=== PATIENT | male | born 1990 | race Two or more races ===

== ENCOUNTER 2016-06-30 22:16 | Emergency (ER) | payer MEDICAID ==
--- NOTE | 2016-07-01 02:49 | ER Document Report ---
ED Hand/Wrist Injury - General Chief Complaint: Hand Injury Stated Complaint: LEFT ARM INJURY Mode of Arrival: Ambulatory Information source: Patient Notes: 26-year-old male presents to the emergency department complaining of left hand pain. Patient 2 reports days ago was helping a friend move some heavy furniture when a desk fell on his hand. Reports pain to the lateral dorsal aspect of his abdomen worse with movement. Denies numbness or tingling. TRAVEL OUTSIDE OF THE [place] IN LAST 30 DAYS: No - HPI Injury to: Hand Where: Home Timing: Still present Quality of pain: Achy Severity: Moderate Pain Level: 3 Context: Blow - Related Data Allergies/Adverse Reactions: No Known Allergies Allergy (Verified 06/30/16 23:14) Past Medical History - General Information source: Patient - Social History Smoking Status: Never Smoker Frequency of alcohol use: None Drug Abuse: None Lives with: Family Family History: Reviewed & Not Pertinent Patient has suicidal ideation: No Patient has homicidal ideation: No - Past Medical History Cardiac Medical History: Reports: Hx Hypercholesterolemia Renal/ Medical History: Denies: Hx Peritoneal Dialysis GI Medical History: Reports: Hx Gastroesophageal Reflux Disease Psychiatric Medical History: Reports: Hx Attention Deficit Hyperactivity Disorder, Hx Bipolar Disorder Surgical Hx: Negative - Immunizations Hx Diphtheria, Pertussis, Tetanus Vaccination: Yes Review of Systems - Review of Systems Constitutional: No symptoms reported EENT: No symptoms reported Cardiovascular: No symptoms reported Respiratory: No symptoms reported Gastrointestinal: No symptoms reported Genitourinary: No symptoms reported Male Genitourinary: No symptoms reported Musculoskeletal: See HPI Skin: No symptoms reported Hematologic/Lymphatic: No symptoms reported Neurological/Psychological: No symptoms reported -: Yes All other systems reviewed and negative Physical Exam - Vital signs Vitals: Temp Pulse Resp BP Pulse Ox 97.8 F 77 16 117/87 H 96 06/30/16 23:14 06/30/16 23:14 06/30/16 23:14 06/30/16 23:14 06/30/16 23:14 - General General appearance: Appears well, Alert In distress: None - HEENT Head: Normocephalic, Atraumatic Eyes: Normal Pupils: PERRL - Respiratory Respiratory status: No respiratory distress Chest status: Nontender Breath sounds: Normal Chest palpation: Normal - Cardiovascular Rhythm: Regular Heart sounds: Normal auscultation Murmur: No - Abdominal Inspection: Normal Distension: No distension Bowel sounds: Normal Tenderness: Nontender Organomegaly: No organomegaly - Extremities General upper extremity: Normal inspection, Nontender, Normal color, Normal ROM , Normal temperature. No: Edema General lower extremity: Normal inspection, Nontender, Normal color, Normal ROM , Normal strength, Normal temperature, Normal weight bearing. No: Edema Shoulder: Normal, Nontender Arm: Normal, Nontender Elbow: Normal, Nontender Forearm: Normal, Nontender Wrist: Normal, Nontender Hand: Tender - Mild tenderness with palpation and slight localized swelling and bruising to the lateral dorsal aspect of left hand over the fourth and fifth MCP joint area. Full but painful active, passive, and against resistance range of motion. Neurovascular function intact with immediate capillary refill and distal sensation intact., Swelling. No: Deformity, Instability, Laceration, Tendon deficit Course - Re-evaluation Re-evalutation: 07/01/16 02:50 Patient hemodynamically stable, in no distress. Exam negative for osseous injury. Gary wrap placed per patient request. Patient appears stable for discharge and agrees with care, follow-up with PCP, and ED return precautions. - Vital Signs Vital signs: Temp Pulse Resp BP Pulse Ox 97.8 F 77 16 117/87 H 96 06/30/16 23:14 06/30/16 23:14 06/30/16 23:14 06/30/16 23:14 06/30/16 23:14 - Diagnostic Test Radiology reviewed: Image reviewed, Reports reviewed Procedures - Immobilization Left hand Pre-Proc Neuro Vasc Exam: Normal Immobilizer type: Gary wrap Performed by: RN, PCT Post-Proc Neuro Vasc Exam: Normal Alignment checked and good: Yes Discharge - Discharge Clinical Impression: Contusion of left hand Qualifiers: Encounter type: initial encounter Qualified Code(s): S60.222A - Contusion of left hand, initial encounter Condition: Stable Disposition: HOME, SELF-CARE Instructions: Contusion ([facility]), Ice & Elevation ([facility]), Anti-Inflammatory Medication ([facility]), Gary Wrap ([facility]) Additional Instructions: Follow-up with your primary care provider this week. Return to the emergency department for any worsening symptoms or concerns. Prescriptions: Naproxen 500 mg PO BIDP PRN #10 tablet PRN Reason: Forms: Return to Work
[2016-07-01 03:05] VITALS: BP 121/81
== END 2016-07-01 02:50 | disposition home or self-care (01) ==
LOC: ER 22:16
DX: S60.222A Contusion of left hand, initial encounter (principal); W22.8XXA Striking against or struck by other objects, initial encounter; Y92.009 Unspecified place in unspecified non-institutional (private) residence as the place of occurrence of the external cause; K21.9 Gastro-esophageal reflux disease without esophagitis; E78.00 Pure hypercholesterolemia, unspecified
CPT/HCPCS: 99283

== ENCOUNTER 2016-12-26 23:29 | Emergency (ER) | payer MEDICAID ==
[2016-12-27 00:38] LABS: ABSOLUTE BASOPHILS # (AUTO) 0.1 10^3/uL (0.0-0.2); ABSOLUTE EOSINOPHILS # (AUTO) 0.3 10^3/uL (0.0-0.6); ABSOLUTE LYMPHOCYTES (AUTO) 3.5 10^3/uL (0.5-4.7); ABSOLUTE MONOCYTES (AUTO) 0.6 10^3/uL (0.1-1.4); ABSOLUTE NEUT (AUTO) 4.1 10^3/uL (1.7-8.2); BASOPHILS % (AUTO) 1.4 % (0-2); EOSINOPHILS % (AUTO) 3.9 % (0-6); HEMATOCRIT 44.2 % (37.9-51.0); HEMOGLOBIN 15.8 g/dL (13.5-17.0); HGB HCT DIFFERENCE 3.2; LYMPHOCYTES % (AUTO) 40.6 % (13-45); MEAN CORPUSCULAR HEMOGLOBIN 31.3 pg (27.0-33.4); MEAN CORPUSCULAR HGB CONC 35.7 g/dL (32.0-36.0); MEAN CORPUSCULAR VOLUME 88 fl (80-97); MONOCYTES % (AUTO) 6.7 % (3-13); RED BLOOD COUNT 5.04 10^6/uL (4.35-5.55); RED CELL DISTRIBUTION WIDTH 13.7 % (11.5-14.0); SEGMENTED NEUTROPHILS % (AUTO) 47.4 % (42-78); WHITE BLOOD COUNT 8.7 10^3/uL (4.0-10.5)
[2016-12-27 00:54] LABS: APPEARANCE,URINE CLEAR; BILIRUBIN,URINE NEGATIVE (NEGATIVE); GLUCOSE, URINE NEGATIVE (NEGATIVE); KETONES,URINE NEGATIVE (NEGATIVE); LEUKOCYTE ESTERASE,URINE NEGATIVE (NEGATIVE); NITRITE,URINE NEGATIVE (NEGATIVE); PROTEIN,URINE NEGATIVE (NEGATIVE); URINE SPECIFIC GRAVITY 1.002; UROBILINOGEN,URINE NEGATIVE mg/dL (<2.0)
[2016-12-27] MEDS ORDERED: DICYCLOMINE HCL 20 MG TABLET PO ONE (00:55)
[2016-12-27 00:56] LABS: ALANINE AMINOTRANSFERASE 67 U/L (21-72); ALBUMIN 4.8 g/dL (3.5-5.0); ALKALINE PHOSPHATASE 109 U/L (38-126); ANION GAP 13 (5-19); ASPARTATE AMINO TRANSFERASE 46 U/L (17-59); BILIRUBIN,DIRECT 0.4 mg/dL (0.0-0.4); BILIRUBIN,TOTAL 0.5 mg/dL (0.2-1.3); BLOOD UREA NITROGEN 9 mg/dL (7-20); CALCIUM 10.5 mg/dL (8.4-10.2); CARBON DIOXIDE 21 mmol/L (22-30); CHLORIDE 110 mmol/L (98-107); CREATININE RESULT 0.98 mg/dL (0.52-1.25); GLUCOSE 110 mg/dL (75-110); LIPASE 119.4 U/L (23-300); POTASSIUM 4.5 mmol/L (3.6-5.0)
[2016-12-27] MEDS ORDERED: FAMOTIDINE 20 MG TABLET PO ONE (00:56)
--- NOTE | 2016-12-27 01:02 | ER Document Report ---
ED GI/ - General Chief Complaint: Abdominal Pain Stated Complaint: LEFT FLANK PAIN Time Seen by Provider: 12/27/16 00:46 Notes: Patient says he was awakened about 2 AM Tuesday morning with a burning pain in the left upper quadrant of his abdomen. It lasted for about an hour and went away but then came back Tuesday afternoon about 3 PM and this time it lasted for about an hour, again. And, finally, patient had onset of another similar pain about 11 PM tonight and this is the third episode and he still having some pain from this 1. He has not had any vomiting or diarrhea. Having bowel movements. Patient drinks a huge amount of water and sodas. Has not had any fever. No UTI symptoms. No sore throat. Has not been around anyone with mono. Patient has a history of mental conditions including bipolar disorder, ADHD, and several other mental conditions. He is on for psychotic medications, including Seroquel and clonazepam. He does not remember the other medications. Patient denies feeling unusually stressed and does not think that this pain is related to stress or gas. I pointed out to him that there only 2 organs in the area where he is indicating he is having pain in those are his spleen and large descending bowel. TRAVEL OUTSIDE OF THE [place] IN LAST 30 DAYS: No - Related Data Allergies/Adverse Reactions: No Known Allergies Allergy (Verified 12/27/16 00:21) Past Medical History - Social History Smoking Status: Unknown if Ever Smoked Family History: Reviewed & Not Pertinent Patient has suicidal ideation: No Patient has homicidal ideation: No - Past Medical History Cardiac Medical History: Reports: Hx Hypercholesterolemia Endocrine Medical History: Denies: Hx Diabetes Mellitus Type 1, Hx Diabetes Mellitus Type 2 GI Medical History: Reports: Hx Gastroesophageal Reflux Disease Psychiatric Medical History: Reports: Hx Attention Deficit Hyperactivity Disorder, Hx Bipolar Disorder Surgical Hx: Negative Past Surgical History: Reports: None - Immunizations Hx Diphtheria, Pertussis, Tetanus Vaccination: Yes Review of Systems - Review of Systems Notes: REVIEW OF SYSTEMS: CONSTITUTIONAL : Denies fever. EENT: Denies eye, ear, nose or mouth or throat pain or other symptoms. CARDIOVASCULAR: Denies chest pain. RESPIRATORY: Denies cough, chest congestion, or shortness of breath. GASTROINTESTINAL: See HPI. GENITOURINARY: Denies difficulty or painful urinating, urinary frequency, blood in urine. MUSCULOSKELETAL: Denies back or neck pain. Denies joint pain or swelling. SKIN: Denies rash or skin lesions. NEUROLOGICAL: Denies LOC or altered mental status. Denies headache. Denies sensory loss or motor deficits. Psychological: Denies anxiety or stress ALL OTHER SYSTEMS REVIEWED AND NEGATIVE. Physical Exam - Vital signs Interpretation: Normal - Notes Notes: PHYSICAL EXAMINATION: GENERAL: Well-appearing, in no acute distress. Vital signs are all essentially normal with the exception of the blood pressure slightly elevated. Afebrile. HEAD: Atraumatic, normocephalic. NECK: Normal range of motion, supple. LUNGS: Breath sounds clear and equal bilaterally. HEART: Regular rate and rhythm without murmurs. ABDOMEN: Soft, nontender. No masses felt. No real significant tenderness to palpation on the left side of the abdomen. Certainly no guarding or rebound. BACK: No tenderness throughout entire back. EXTREMITIES: Normal range of motion without pain. NEUROLOGICAL: Normal speech, normal gait. Normal sensory, motor, and reflex exams. Awake, alert, and oriented x3. Cranial nerves normal. PSYCH: Normal mood, normal affect. SKIN: Warm, dry, no rashes. Course - Re-evaluation Re-evalutation: 12/27/16 02:33 Patient is sleeping soundly and pain-free. - Laboratory Result Diagrams: 12/27/16 00:25 12/27/16 00:25 Laboratory results interpreted by me: 12/27/16 00:25 Chloride 110 H Carbon Dioxide 21 L Calcium 10.5 H All labs essentially normal. Discharge - Discharge Clinical Impression: Abdominal pain Condition: Stable Disposition: HOME, SELF-CARE Additional Instructions: ABDOMINAL PAIN: There are many causes of abdominal pain. Pain can mean a serious problem requiring surgery (such as appendicitis). It can also be an innocent problem that goes away on its own (such as a viral infection). Often, time must pass to determine the cause of pain. The physician does not feel that hospitalization is necessary, at present. Things may change within the next 24 hours. Call the doctor or come back for re- examination if any problems occur, such as: (1) Pain that becomes more severe, steady, or becomes concentrated in one specific area. Also, pain that is more severe with movement or coughing. (2) Vomiting that persists or becomes more frequent. (3) Blood in the vomitus, urine, or bowel movements. Blood in the stool may have a tarry or black appearance. (4) Shaking chills or fever greater than 100 degrees F. (5) The abdomen becomes more distended or swollen. (6) Bowel movements cease. (7) Failure to improve as expected. NORMAL EXAM AND WORKUP: At this time, your examination and workup show no significant abnormality. No significant abnormal physical findings are noted. All laboratory, EKG, and imaging (x-ray, CT scans, ultrasound) studies that were ordered show no significant abnormality. Although your examination and all studies that were ordered showed no significant abnormal finding, there are no examinations and no studies that are 100% accurate. There is always the possibility that some abnormality could exist and not be detected with physical examination or within the limits and capabilities of laboratory and other studies. You should return or follow up as you were instructed on your visit today for further evaluation if your symptoms do not resolve. ANTISPASMODICS: You have been given a prescription for an antispasmodic medicine. This type of drug is used to decrease cramping and pain in the intestines. It is also used to decrease secretion of internal fluids (such as stomach acid in ulcer disease or pancreatic juice in pancreas disease). This medicine may cause drowsiness, especially with the first dose. Do not operate machinery or drive until all side effects have resolved. Do not combine with alcohol. Other common side effects include dry mouth and eyes. In older persons, antispasmodics can occasionally cause urinary retention, constipation, or trouble focusing the eyes. Glaucoma may be worsened by this medicine. FOLLOW-UP CARE: If you have been referred to a physician for follow-up care, call the physician s office for an appointment as you were instructed or within the next two days. If you experience worsening or a significant change in your symptoms, notify the physician immediately or return to the Emergency Department at any time for re-evaluation. Prescriptions: Dicyclomine HCl [Bentyl 20 mg Tablet] 20 mg PO QID #12 tablet Referrals: JUAN JOSÉ MEDINA MD [Primary Care Provider] - Follow up as needed
[2016-12-27 01:05] LABS: BACTERIA,URINE TRACE /HPF; WBC,URINE RARE /HPF
[2016-12-27 07:50] VITALS: BP 123/76
== END 2016-12-27 07:44 | disposition home or self-care (01) ==
LOC: ER 23:29
DX: R10.12 Left upper quadrant pain (principal); E78.00 Pure hypercholesterolemia, unspecified; K21.9 Gastro-esophageal reflux disease without esophagitis
CPT/HCPCS: 99284; 36415; 83690; 85025; 80053; 81001; J3490 ×2

== ENCOUNTER 2017-05-01 21:10 | Emergency (ER) | payer MEDICAID ==
--- NOTE | 2017-05-01 21:31 | ER Document Report ---
ED Medical Screen (RME) - General Chief Complaint: Psych Problem Stated Complaint: PSYCH Time Seen by Provider: 05/01/17 21:27 Mode of Arrival: Ambulatory Information source: Patient Notes: The 27-year-old male presents to ED for state and he thinks he wants to hurt everyone in his family and when asked what does he mean he says he thinks he wants to kill everybody. He states he has been getting more more aggressive with me in and women. He states that his family is fussing that he is too rough with his younger brother. He states he lost his Social Security and his Medicaid and then his job because he was working too much last year. States he has a history of tics bipolar ADHD and hypomania. He states that the Social Security office and [place] is trying to help him get his Social Security back but he has been off his meds for 2 weeks because he did not have the money to get them. He states he needs an evaluation he needs some help because he is in trouble right now. I have greeted and performed a rapid initial assessment of this patient. A comprehensive ED assessment and evaluation of the patient, analysis of test results and completion of medical decision making process will be conducted by an additional ED providers. TRAVEL OUTSIDE OF THE [place] IN LAST 30 DAYS: No - Related Data Allergies/Adverse Reactions: No Known Allergies Allergy (Verified 12/27/16 00:21) Past Medical History - Social History Family history: Reviewed & Not Pertinent - Past Medical History Cardiac Medical History: Reports: Hx Hypercholesterolemia Endocrine Medical History: Denies: Hx Diabetes Mellitus Type 1, Hx Diabetes Mellitus Type 2 Renal/ Medical History: Denies: Hx Peritoneal Dialysis GI Medical History: Reports: Hx Gastroesophageal Reflux Disease Psychiatric Medical History: Reports: Hx Attention Deficit Hyperactivity Disorder, Hx Bipolar Disorder - Immunizations Hx Diphtheria, Pertussis, Tetanus Vaccination: Yes
[2017-05-01 22:24] LABS: ABSOLUTE BASOPHILS # (AUTO) 0.2 10^3/uL (0.0-0.2); ABSOLUTE EOSINOPHILS # (AUTO) 0.4 10^3/uL (0.0-0.6); ABSOLUTE LYMPHOCYTES (AUTO) 3.1 10^3/uL (0.5-4.7); ABSOLUTE MONOCYTES (AUTO) 0.7 10^3/uL (0.1-1.4); ABSOLUTE NEUT (AUTO) 5.9 10^3/uL (1.7-8.2); BASOPHILS % (AUTO) 1.5 % (0-2); EOSINOPHILS % (AUTO) 3.5 % (0-6); HEMATOCRIT 46.9 % (37.9-51.0); HEMOGLOBIN 16.5 g/dL (13.5-17.0); LYMPHOCYTES % (AUTO) 30.3 % (13-45); MEAN CORPUSCULAR HEMOGLOBIN 30.6 pg (27.0-33.4); MEAN CORPUSCULAR HGB CONC 35.2 g/dL (32.0-36.0); MEAN CORPUSCULAR VOLUME 87 fl (80-97); MONOCYTES % (AUTO) 6.8 % (3-13); PLATELET COUNT 345 10^3/uL (150-450); RED BLOOD COUNT 5.39 10^6/uL (4.35-5.55); RED CELL DISTRIBUTION WIDTH 13.4 % (11.5-14.0); SEGMENTED NEUTROPHILS % (AUTO) 57.9 % (42-78); TOTAL CELLS COUNTED % (AUTO) 100 %; WHITE BLOOD COUNT 10.1 10^3/uL (4.0-10.5)
--- NOTE | 2017-05-01 22:27 | EKG REPORT ---
SEVERITY:- NORMAL ECG - SINUS RHYTHM : Confirmed by: Kavon Moore MD 01-May-2017 22:27:15
[2017-05-01 22:41] LABS: ACETAMINOPHEN < 10 ug/mL (10-30); ALANINE AMINOTRANSFERASE 72 U/L (21-72); ALCOHOL < 10 mg/dL (NONE DETECTED); ALKALINE PHOSPHATASE 115 U/L (38-126); ANION GAP 15 (5-19); ASPARTATE AMINO TRANSFERASE 43 U/L (17-59); BILIRUBIN,DIRECT 0.2 mg/dL (0.0-0.4); BILIRUBIN,TOTAL 0.4 mg/dL (0.2-1.3); BLOOD UREA NITROGEN 9 mg/dL (7-20); CALCIUM 10.5 mg/dL (8.4-10.2); CARBON DIOXIDE 22 mmol/L (22-30); CHLORIDE 106 mmol/L (98-107); GLUCOSE 94 mg/dL (75-110); POTASSIUM 4.4 mmol/L (3.6-5.0); SALICYLATE < 1.0 mg/dL (2.0-20.0); SODIUM 143.1 mmol/L (137-145); TOTAL PROTEIN 8.3 g/dL (6.3-8.2)
[2017-05-01 22:54] LABS: APPEARANCE,URINE CLEAR; BILIRUBIN,URINE NEGATIVE (NEGATIVE); COLOR,URINE COLORLESS; GLUCOSE, URINE NEGATIVE (NEGATIVE); KETONES,URINE NEGATIVE (NEGATIVE); LEUKOCYTE ESTERASE,URINE NEGATIVE (NEGATIVE); NITRITE,URINE NEGATIVE (NEGATIVE); PROTEIN,URINE NEGATIVE (NEGATIVE); URINE SPECIFIC GRAVITY 1.002; UROBILINOGEN,URINE NEGATIVE mg/dL (<2.0)
[2017-05-01 23:10] LABS: URINE AMPHETAMINES SCREEN NEGATIVE; URINE BARBITURATES SCREEN NEGATIVE; URINE BENZODIAZEPINES SCREEN NEGATIVE; URINE COCAINE SCREEN NEGATIVE; URINE MARIJUANA (THC) SCREEN NEGATIVE; URINE METHADONE SCREEN NEGATIVE; URINE PHENCYCLIDINE SCREEN NEGATIVE
[2017-05-01] MEDS ORDERED: QUETIAPINE FUMARATE 100 MG TABLET PO ONE (23:37)
--- NOTE | 2017-05-01 23:38 | ER Document Report ---
ED General - General Chief Complaint: Psych Problem Stated Complaint: PSYCH Time Seen by Provider: 05/01/17 21:27 Mode of Arrival: Ambulatory Notes: Patient is a 27-year-old male with a past medical history of bipolar disorder who presents with homicidal and suicidal ideation. Patient reports that he has been struggling with his bipolar disorder more in the past 3 weeks as he lost access to health insurance and has been off of all of his medications during that period of time. He states that tonight he "blew up" at his family because he felt they were ignoring him. He states that he continues to feel some degree of homicidal and suicidal ideation but denies any specific plans, means or intention of completing these actions. He has no prior history of mild behavior in the past per his report. He has not seen a general doctor regarding his concerns as he has no access to care at this time due to lack of insurance. TRAVEL OUTSIDE OF THE [place] IN LAST 30 DAYS: No - Related Data Allergies/Adverse Reactions: No Known Allergies Allergy (Verified 12/27/16 00:21) Past Medical History - General Information source: Patient - Social History Smoking Status: Never Smoker Frequency of alcohol use: None Drug Abuse: None Lives with: Family Family History: Reviewed & Not Pertinent Patient has suicidal ideation: Yes Patient has homicidal ideation: Yes - Past Medical History Cardiac Medical History: Reports: Hx Hypercholesterolemia Endocrine Medical History: Denies: Hx Diabetes Mellitus Type 1, Hx Diabetes Mellitus Type 2 Renal/ Medical History: Denies: Hx Peritoneal Dialysis GI Medical History: Reports: Hx Gastroesophageal Reflux Disease Psychiatric Medical History: Reports: Hx Attention Deficit Hyperactivity Disorder, Hx Bipolar Disorder - Immunizations Hx Diphtheria, Pertussis, Tetanus Vaccination: Yes Review of Systems - Review of Systems Notes: Constitutional: Negative for fever. HENT: Negative for sore throat. Eyes: Negative for visual changes. Cardiovascular: Negative for chest pain. Respiratory: Negative for shortness of breath. Gastrointestinal: Negative for abdominal pain, vomiting or diarrhea. Genitourinary: Negative for dysuria. Musculoskeletal: Negative for back pain. Skin: Negative for rash. Neurological: Negative for headaches, weakness or numbness. 10 point ROS negative except as marked above and in HPI. Physical Exam - Vital signs Interpretation: Normal Notes: PHYSICAL EXAMINATION: GENERAL: Well-appearing, well-nourished and in no acute distress. HEAD: Atraumatic, normocephalic. EYES: Pupils equal round and reactive to light, extraocular movements intact, sclera anicteric, conjunctiva are normal. ENT: nares patent, oropharynx clear without exudates. Moist mucous membranes. NECK: Normal range of motion, supple without lymphadenopathy LUNGS: Breath sounds clear to auscultation bilaterally and equal. No wheezes rales or rhonchi. HEART: Regular rate and rhythm without murmurs ABDOMEN: Soft, nontender, normoactive bowel sounds. No guarding, no rebound. No masses appreciated. EXTREMITIES: Normal range of motion, no pitting or edema. No cyanosis. NEUROLOGICAL: No focal neurological deficits. Moves all extremities spontaneously and on command. PSYCH: Normal mood, normal affect. SKIN: Warm, Dry, normal turgor, no rashes or lesions noted. Course - Re-evaluation Re-evalutation: 05/01/17 23:36 Patient presents with passive homicidal and suicidal ideation without any specific plans, targets or means to complete. He has been off his medication for the past 2 weeks and states that his main issue is "aggression, boredom, and just being kind of manic". He apparently yelled at his family tonight and was subsequently transferred to the emergency department. He does not meet involuntary commitment criteria. He denies any acute medical complaints. He has requested to stay and be evaluated by psychiatry in the morning. Medical screening exam and labs is unremarkable. - Laboratory Result Diagrams: 05/01/17 22:08 05/01/17 22:08 Laboratory results interpreted by me: 05/01/17 22:08 Calcium 10.5 H Total Protein 8.3 H Salicylates < 1.0 L Acetaminophen < 10 L - EKG Interpretation by Me Additional EKG results interpreted by me: 05/02/17 00:59 Sinus rhythm. Rate 88. No ST elevations or depressions. QTC is 426. Discharge - Discharge Clinical Impression: Homicidal ideation, Suicidal ideation Condition: Fair Disposition: PSYCH HOSP/UNIT Referrals: JUAN JOSÉ MEDINA MD [Primary Care Provider] - Follow up as needed
--- NOTE | 2017-05-02 09:12 | PSYCHOLOGICAL NOTE ---
Psych Note - Psych Note Psych Note: Spoke with Patient w abelardo advised he got upset and emotional last evening when he began to argue with his family regarding the loss of his Medicaid. He stated he and his family usually do not argue, but since he has been off his medications for the past two weeks he felt as though he was unable to manage his emotions. Patient reported he made threats of suicide to get out of the home but was not actually suicidal. He denied feeling suicidal / homicidal at time of evaluation. 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 He indicated he was fired secondary to losing an ID badge that offered entrance to a secure base. Patient reported he made several friends, had no disciplinary action, and enjoyed his employment. Patient reported that at the beginning of March 2017 he quit receiving Social Security Disability for Bipolar Disorder secondary to working multimedia specialist at [employer]. As a result, he can no longer return to [facility] for medication management and requires a new provider and medications he can afford. Patient also reported he has not sought new employment since he would rather receive disability benefits than work multimedia specialist. Patient was alert and oriented to person, place, time, and circumstance. Mood was euthymic and affect was blunted. He denied suicidal / homicidal ideation, intent, or plan and denied a history of the same. He denied auditory/ visual hallucinations and no delusions were noted. Thought processes were linear, rational, and organized. Conversational speech was within normal limits for rate , tone, and prosody. He maintained good eye contact throughout the conversation. Intellectual abilities were estimated within the average range. Attention and conversation were within normal limits. Insight, judgment, and impulse control were historically poor. 1. 296.42 (F31.12) Bipolar Disorder, Moderate, Most Recent Episode Manic 2. V62.89 (Z60.0) Other Problems Related to Social Environment Current Home Medications: 1. Equetro 100 mg qhs 2. Seroquel 800 mg qhs 3. Cogentin 2 mg qhs 4. Invega Sustenna 234 mg/ 1.5 mL / Month 5. Gabapentin 300 mg qhs 6. Tenex 1/2 mg qhs [facility] Provider recommends: 1. Depakote 500 mg twice per day 2. Zyprexa 5 mg twice per day 3. Cogentin 1 mg per day 4. Clonidine 0.1 mg qhs Impression / Plan: Patient does not meet IVC criteria and is psychiatrically cleared for discharge. He is attempting to have his Social Security reinstated and in the meantime requires a new provider who takes self-pay and medications he can afford. Patient denied suicidal / homicidal ideation, intent or plan. He agreed he needed a new provider and was willing to take different medications. Patient's medications were last filled on March 25, 2017. Patient is referred to [facility] for follow up and an appointment is scheduled for him. ED Physician in agreement with recommendation and disposition.
--- NOTE | 2017-05-02 09:55 | ER Document Report ---
Doctor's Note Notes: 05/02/17 09:54 Rounds: Chart reviewed and patient interviewed. Patient says he does not feel suicidal at this time. Says he has not been seeing anyone for mental health care because he does not have insurance or Medicaid. Not taking any medications. Vital signs are all essentially normal. Lab studies were all essentially normal. Patient appears to be medically stable for transfer or discharge. Jeanine Mckeon MD
[2017-05-02 10:08] VITALS: BP 142/88
== END 2017-05-02 10:22 | disposition home or self-care (01) ==
LOC: ER 21:10
DX: R45.850 Homicidal ideations (principal); R45.851 Suicidal ideations; F31.89 Other bipolar disorder; E78.00 Pure hypercholesterolemia, unspecified
CPT/HCPCS: 93005; 99285; 36415; 80307 ×4; 85025; 80053; 81001; 93010; J3490

== ENCOUNTER 2018-03-16 16:30 | Emergency (ER) | payer MEDICAID ==
--- NOTE | 2018-03-16 16:46 | ER Document Report ---
ED Medical Screen (RME) - General Chief Complaint: Back Pain Stated Complaint: BACK PAIN Time Seen by Provider: 03/16/18 16:41 Notes: 28-year-old bipolar male complains of back pain for 4 weeks states it is mid to lower back and has been worse the last few days. He also reports a recent diagnosis of type 2 diabetes, but has not been started on medications. States he missed his March 03 appointment by sleeping into late and they rescheduled him for sometime in May 2018. He states the pain is worse when he works out, lifts weights, and does other exercises like riding his bicycle. I have greeted and performed a rapid initial assessment of this patient. A comprehensive ED assessment and evaluation of the patient, analysis of test results and completion of the medical decision making process will be conducted by additional ED providers. TRAVEL OUTSIDE OF THE [place] IN LAST 30 DAYS: No - Related Data Allergies/Adverse Reactions: No Known Allergies Allergy (Verified 12/27/16 00:21) Past Medical History - Social History Family history: Reviewed & Not Pertinent - Past Medical History Cardiac Medical History: Reports: Hx Hypercholesterolemia Endocrine Medical History: Denies: Hx Diabetes Mellitus Type 1, Hx Diabetes Mellitus Type 2 Renal/ Medical History: Denies: Hx Peritoneal Dialysis GI Medical History: Reports: Hx Gastroesophageal Reflux Disease Psychiatric Medical History: Reports: Hx Attention Deficit Hyperactivity Disorder, Hx Bipolar Disorder - Immunizations Hx Diphtheria, Pertussis, Tetanus Vaccination: Yes Doctor's Discharge - Discharge Referrals: JUAN JOSÉ MEDINA MD [Primary Care Provider] - Follow up as needed
[2018-03-16 17:16] LABS: ABSOLUTE BASOPHILS # (AUTO) 0.1 10^3/uL (0.0-0.2); ABSOLUTE EOSINOPHILS # (AUTO) 0.1 10^3/uL (0.0-0.6); ABSOLUTE LYMPHOCYTES (AUTO) 1.9 10^3/uL (0.5-4.7); ABSOLUTE MONOCYTES (AUTO) 0.4 10^3/uL (0.1-1.4); ABSOLUTE NEUT (AUTO) 3.8 10^3/uL (1.7-8.2); BASOPHILS % (AUTO) 1.2 % (0-2); EOSINOPHILS % (AUTO) 2.1 % (0-6); HEMATOCRIT 46.8 % (37.9-51.0); HEMOGLOBIN 15.9 g/dL (13.5-17.0); LYMPHOCYTES % (AUTO) 30.4 % (13-45); MEAN CORPUSCULAR VOLUME 88 fl (80-97); MONOCYTES % (AUTO) 6.3 % (3-13); PLATELET COUNT 264 10^3/uL (150-450); RED BLOOD COUNT 5.31 10^6/uL (4.35-5.55); RED CELL DISTRIBUTION WIDTH 14.6 % (11.5-14.0); TOTAL CELLS COUNTED % (AUTO) 100 %; WHITE BLOOD COUNT 6.3 10^3/uL (4.0-10.5)
[2018-03-16 17:21] LABS: APPEARANCE,URINE SLIGHTLY-CLOUDY; BILIRUBIN,URINE NEGATIVE (NEGATIVE); GLUCOSE, URINE NEGATIVE (NEGATIVE); KETONES,URINE NEGATIVE (NEGATIVE); LEUKOCYTE ESTERASE,URINE NEGATIVE (NEGATIVE); NITRITE,URINE NEGATIVE (NEGATIVE); PROTEIN,URINE NEGATIVE (NEGATIVE); URINE SPECIFIC GRAVITY 1.024; UROBILINOGEN,URINE NEGATIVE mg/dL (<2.0)
[2018-03-16 17:24] LABS: COLOR,URINE YELLOW
[2018-03-16 17:40] LABS: ALANINE AMINOTRANSFERASE 48 U/L (21-72); ALBUMIN 4.7 g/dL (3.5-5.0); ALKALINE PHOSPHATASE 81 U/L (38-126); ANION GAP 10 (5-19); ASPARTATE AMINO TRANSFERASE 31 U/L (17-59); BILIRUBIN,DIRECT 0.3 mg/dL (0.0-0.4); BILIRUBIN,TOTAL 0.7 mg/dL (0.2-1.3); BLOOD UREA NITROGEN 10 mg/dL (7-20); CALCIUM 10.5 mg/dL (8.4-10.2); CARBON DIOXIDE 26 mmol/L (22-30); CHLORIDE 107 mmol/L (98-107); GLUCOSE 112 mg/dL (75-110); POTASSIUM 4.6 mmol/L (3.6-5.0); SODIUM 142.8 mmol/L (137-145); TOTAL PROTEIN 7.6 g/dL (6.3-8.2)
[2018-03-16] MEDS ORDERED: NAPROXEN 250 MG TABLET PO ONE (19:14)
[2018-03-16] MEDS ORDERED: LIDOCAINE 5% (700 MG) TRANSDERMAL ADH..PATCH TP ONE (19:14)
--- NOTE | 2018-03-16 19:20 | ER Document Report ---
ED General - General Chief Complaint: Back Pain Stated Complaint: BACK PAIN Time Seen by Provider: 03/16/18 16:41 Notes: Patient is a 28-year-old male without chronic medical problems who presents with approximately 1 month of low back pain. The patient reports that he has recently started weight lifting and feels that he has strained something in his low back. States at work yesterday he was lifting heavy items and felt like his back was strained even more. He notes a dull, throbbing, constant pain to the low back. States that he has been taking [id number] muscle relaxants without any significant relief. Nothing seems to worsen his symptoms other than lifting or moving the back. No long-standing history of chronic back problems. He denies any bowel or bladder incontinence. No urinary retention. No fever. No IV drug use. No difficulty ambulating. No weakness or numbness. He has not seen his general doctor regarding today's concerns. TRAVEL OUTSIDE OF THE [place] IN LAST 30 DAYS: No - Related Data Allergies/Adverse Reactions: No Known Allergies Allergy (Verified 12/27/16 00:21) Past Medical History - General Information source: Patient - Social History Smoking Status: Never Smoker Frequency of alcohol use: None Drug Abuse: None Lives with: Alone Family History: Reviewed & Not Pertinent Patient has suicidal ideation: No Patient has homicidal ideation: No - Past Medical History Cardiac Medical History: Reports: Hx Hypercholesterolemia Endocrine Medical History: Denies: Hx Diabetes Mellitus Type 1, Hx Diabetes Mellitus Type 2 Renal/ Medical History: Denies: Hx Peritoneal Dialysis GI Medical History: Reports: Hx Gastroesophageal Reflux Disease Psychiatric Medical History: Reports: Hx Attention Deficit Hyperactivity Disorder, Hx Bipolar Disorder - Immunizations Hx Diphtheria, Pertussis, Tetanus Vaccination: Yes Review of Systems - Review of Systems Notes: Constitutional: Negative for fever. HENT: Negative for sore throat. Eyes: Negative for visual changes. Cardiovascular: Negative for chest pain. Respiratory: Negative for shortness of breath. Gastrointestinal: Negative for abdominal pain, vomiting or diarrhea. Genitourinary: Negative for dysuria. Musculoskeletal: Positive for low back pain Skin: Negative for rash. Neurological: Negative for headaches, weakness or numbness. 10 point ROS negative except as marked above and in HPI. Physical Exam - Vital signs Vitals: Temp Pulse Resp BP Pulse Ox 98.4 F 70 16 110/78 99 03/16/18 19:33 03/16/18 19:33 03/16/18 19:33 03/16/18 19:33 03/16/18 19:33 Interpretation: Normal Notes: PHYSICAL EXAMINATION: GENERAL: Well-appearing, well-nourished and in no acute distress. HEAD: Atraumatic, normocephalic. EYES: Pupils equal round and reactive to light, extraocular movements intact, sclera anicteric, conjunctiva are normal. ENT: nares patent, oropharynx clear without exudates. Moist mucous membranes. NECK: Normal range of motion, supple without lymphadenopathy LUNGS: Breath sounds clear to auscultation bilaterally and equal. No wheezes rales or rhonchi. HEART: Regular rate and rhythm without murmurs ABDOMEN: Soft, nontender, normoactive bowel sounds. No guarding, no rebound. No masses appreciated. EXTREMITIES: Normal range of motion, no pitting or edema. No cyanosis. Back: No midline spinal tenderness, step-offs or deformities. NEUROLOGICAL: 5 out of 5 strength both distally and proximally bilateral lower extremities. 2+ patellar reflexes bilaterally. No clonus. Sensation grossly intact in the bilateral lower extremities. Patient is able to ambulate without difficulty. PSYCH: Normal mood, normal affect. SKIN: Warm, Dry, normal turgor, no rashes or lesions noted. Course - Re-evaluation Re-evalutation: 03/16/18 19:21 Presentation of a well appearing patient complaining of acute on chronic back pain. No rapid progression of symptoms, systemic symptoms including fevers, chills, weight loss, history of recent bacterial infection, bilateral symptoms, numbness, weakness, difficulty walking, urinary retention or bowel incontinence, personal history of cancer, immunosuppression, diabetes, known AAA, or history of IV drug use. Exam is without point tenderness over vertebral bodies, pulsatile abdominal mass, and patient has symmetric and intact lower extremity strength, sensation, and reflexes without clonus. 2+ symmetric medial malleolar and dorsalis pedis pulses Based on history and physical, I have a very low suspicion of a concerning etiology of pain including epidural compression syndrome, spinal infection, ts[place] sverse myelitis, malignancy, abdominal aortic aneurysm, renal colic, acute lower extremity claudication, neurogenic claudication, ankylosing spondylitis, or other intra-abdominal process. Due to absence of concerning risk factors in history and physical as well as absence of rapidly progressive, severe, or bilateral symptoms, will defer imaging at this point. Plan to manage conservatively with outpatient analgesia, analgesia, and physical therapy. - Acetaminophen 650 q 4 + ibuprofen 600 q 6 - Continue normal daily activities as tolerated by pain - Provide with standard musculoskeletal back pain exercise instructions - Instruct to follow up with primary care provider if symptoms not improving - Provide careful return precautions and concerning symptoms to watch for. - Vital Signs Vital signs: Temp Pulse Resp BP Pulse Ox 98.4 F 70 16 110/78 99 03/16/18 19:33 03/16/18 19:33 03/16/18 19:33 03/16/18 19:33 03/16/18 19:33 - Laboratory Result Diagrams: 03/16/18 16:55 03/16/18 16:55 Laboratory results interpreted by me: 03/16/18 03/16/18 16:55 16:55 RDW 14.6 H Glucose 112 H Calcium 10.5 H Discharge - Discharge Clinical Impression: Musculoskeletal strain Low back pain Qualifiers: Chronicity: acute Back pain laterality: bilateral Sciatica presence: without sciatica Qualified Code(s): M54.5 - Low back pain Condition: Good Disposition: HOME, SELF-CARE Additional Instructions: You have been seen in the Emergency Department (ED) today for back pain. Your workup and exam have not shown any acute abnormalities and you are likely suffering from muscle strain or possible problems with your discs, but there is no treatment that will fix your symptoms at this time. Please take the naproxen that has been prescribed as directed. You should also purchase a local lidocaine cream such as "aspercreme with lidocaine" and use per bottle instructions to the affected area. Apply heat to the area as often as you are able. Continue to keep active and avoid prolonged periods of bed rest. Please follow up with your doctor as soon as possible regarding today's ED visit and your back pain. Return to the ED for worsening back pain, fever, weakness or numbness of either leg, or if you develop either (1) an inability to urinate or have bowel movements, or (2) loss of your ability to control your bathroom functions (if you start having "accidents"), or if you develop other new symptoms that concern you.concern you. Prescriptions: Naproxen 500 mg PO BID PRN #14 tablet PRN Reason: Forms: Return to Work Referrals: JUAN JOSÉ MEDINA MD [Primary Care Provider] - Follow up in 3-5 days
[2018-03-16 19:34] VITALS: BP 110/78
== END 2018-03-16 19:43 | disposition home or self-care (01) ==
LOC: ER 16:30
DX: G89.29 Other chronic pain (principal); M54.5 Low back pain; E78.00 Pure hypercholesterolemia, unspecified
CPT/HCPCS: 99284; 36415; 85025; 80053; 81001; J3490 ×2

== ENCOUNTER 2018-04-16 17:09 | Emergency (ER) | payer MEDICAID ==
--- NOTE | 2018-04-16 17:26 | ER Document Report ---
ED Medical Screen (RME) - General Chief Complaint: Weakness Stated Complaint: WEAKNESS Time Seen by Provider: 04/16/18 17:23 Mode of Arrival: Ambulatory Information source: Patient TRAVEL OUTSIDE OF THE [place] IN LAST 30 DAYS: No - HPI Patient complains to provider of: weakness Onset: Other - pt. states he has been weak for the passt several days with lightheadedness, N/V, and numbness - Related Data Allergies/Adverse Reactions: No Known Allergies Allergy (Verified 12/27/16 00:21) Past Medical History - Social History Chew tobacco use (# tins/day): No Frequency of alcohol use: Rare Drug Abuse: None Family history: Reviewed & Not Pertinent - Past Medical History Cardiac Medical History: Reports: Hx Hypercholesterolemia Endocrine Medical History: Denies: Hx Diabetes Mellitus Type 1, Hx Diabetes Mellitus Type 2 Renal/ Medical History: Denies: Hx Peritoneal Dialysis GI Medical History: Reports: Hx Gastroesophageal Reflux Disease Psychiatric Medical History: Reports: Hx Attention Deficit Hyperactivity Disorder, Hx Bipolar Disorder - Immunizations Hx Diphtheria, Pertussis, Tetanus Vaccination: Yes Physical Exam - Vital signs Vitals: Temp Pulse Resp BP Pulse Ox 98.4 F 72 16 124/76 97 04/16/18 17:15 04/16/18 17:15 04/16/18 17:15 04/16/18 17:15 04/16/18 17:15 Course - Vital Signs Vital signs: Temp Pulse Resp BP Pulse Ox 98.4 F 72 16 124/76 97 04/16/18 17:15 04/16/18 17:15 04/16/18 17:15 04/16/18 17:15 04/16/18 17:15 Doctor's Discharge - Discharge Referrals: JUAN JOSÉ MEDINA MD [Primary Care Provider] - Follow up as needed
[2018-04-16 17:41] LABS: ABSOLUTE BASOPHILS # (AUTO) 0.1 10^3/uL (0.0-0.2); ABSOLUTE EOSINOPHILS # (AUTO) 0.1 10^3/uL (0.0-0.6); ABSOLUTE LYMPHOCYTES (AUTO) 2.3 10^3/uL (0.5-4.7); ABSOLUTE MONOCYTES (AUTO) 0.5 10^3/uL (0.1-1.4); ABSOLUTE NEUT (AUTO) 6.2 10^3/uL (1.7-8.2); BASOPHILS % (AUTO) 0.9 % (0-2); EOSINOPHILS % (AUTO) 1.5 % (0-6); HEMATOCRIT 46.7 % (37.9-51.0); HEMOGLOBIN 16.1 g/dL (13.5-17.0); LYMPHOCYTES % (AUTO) 25.1 % (13-45); MEAN CORPUSCULAR HEMOGLOBIN 30.4 pg (27.0-33.4); MEAN CORPUSCULAR HGB CONC 34.4 g/dL (32.0-36.0); MEAN CORPUSCULAR VOLUME 88 fl (80-97); MONOCYTES % (AUTO) 5.6 % (3-13); PLATELET COUNT 317 10^3/uL (150-450); RED BLOOD COUNT 5.28 10^6/uL (4.35-5.55); RED CELL DISTRIBUTION WIDTH 14.3 % (11.5-14.0); SEGMENTED NEUTROPHILS % (AUTO) 66.9 % (42-78); TOTAL CELLS COUNTED % (AUTO) 100 %; WHITE BLOOD COUNT 9.2 10^3/uL (4.0-10.5)
[2018-04-16 17:44] LABS: APPEARANCE,URINE SLIGHTLY-CLOUDY; BILIRUBIN,URINE NEGATIVE (NEGATIVE); COLOR,URINE AMBER; GLUCOSE, URINE NEGATIVE (NEGATIVE); KETONES,URINE NEGATIVE (NEGATIVE); LEUKOCYTE ESTERASE,URINE NEGATIVE (NEGATIVE); NITRITE,URINE NEGATIVE (NEGATIVE); PROTEIN,URINE NEGATIVE (NEGATIVE); UROBILINOGEN,URINE NEGATIVE mg/dL (<2.0)
[2018-04-16 17:58] LABS: ALANINE AMINOTRANSFERASE 49 U/L (21-72); ALKALINE PHOSPHATASE 90 U/L (38-126); ANION GAP 10 (5-19); ASPARTATE AMINO TRANSFERASE 35 U/L (17-59); BILIRUBIN,DIRECT 0.2 mg/dL (0.0-0.4); BILIRUBIN,TOTAL 0.4 mg/dL (0.2-1.3); BLOOD UREA NITROGEN 9 mg/dL (7-20); CALCIUM 10.5 mg/dL (8.4-10.2); CARBON DIOXIDE 29 mmol/L (22-30); CHLORIDE 103 mmol/L (98-107); GLUCOSE 113 mg/dL (75-110); POTASSIUM 4.5 mmol/L (3.6-5.0); SODIUM 141.6 mmol/L (137-145)
[2018-04-16 18:01] LABS: URINE AMPHETAMINES SCREEN NEGATIVE; URINE BARBITURATES SCREEN NEGATIVE; URINE BENZODIAZEPINES SCREEN NEGATIVE; URINE COCAINE SCREEN NEGATIVE; URINE MARIJUANA (THC) SCREEN NEGATIVE; URINE METHADONE SCREEN NEGATIVE; URINE PHENCYCLIDINE SCREEN NEGATIVE
[2018-04-16] MEDS ORDERED: LIDOCAINE 2% VISCOUS SOLN 20 ML UDCUP PO ONE (18:38)
[2018-04-16] MEDS ORDERED: METOCLOPRAMIDE HCL ORAL SOLN 10 MG/10 ML UDCUP PO ONE (18:38)
[2018-04-16] MEDS ORDERED: MAG HYDROX/AL HYDROX/SIMETH SUSP 30 ML UDCUP PO ONE (18:38)
--- NOTE | 2018-04-16 18:38 | ER Document Report ---
ED General - General Chief Complaint: Weakness Stated Complaint: WEAKNESS Time Seen by Provider: 04/16/18 17:23 Mode of Arrival: Ambulatory Notes: Patient is a 28-year-old male with a past medical history of bipolar disorder, currently off all medications, presents with multiple, varying complaints. It was actually quite difficult to discern what exactly brought the patient to the emergency department today. The patient complained of everything from sore throat, difficulty swallowing, shortness of breath, fatigue, abdominal cramping, headache, weakness, diabetes, and blurring of vision during my assessment. T hese are noted to be different than the complaints that he made in triage. Patient states symptoms been ongoing for 2-3 months. Nothing is new or different that made him come to the emergency department today. He is unable to tell me anything that improves or worsens his symptoms. He has not seen his general physician regarding his multitude of concerns today. TRAVEL OUTSIDE OF THE [place] IN LAST 30 DAYS: No - Related Data Allergies/Adverse Reactions: No Known Allergies Allergy (Verified 12/27/16 00:21) Past Medical History - General Information source: Patient - Social History Smoking Status: Current Every Day Smoker Chew tobacco use (# tins/day): No Frequency of alcohol use: Rare Drug Abuse: None Lives with: Family Family History: Reviewed & Not Pertinent Patient has suicidal ideation: No Patient has homicidal ideation: No - Past Medical History Cardiac Medical History: Reports: Hx Hypercholesterolemia Endocrine Medical History: Denies: Hx Diabetes Mellitus Type 1, Hx Diabetes Mellitus Type 2 Renal/ Medical History: Denies: Hx Peritoneal Dialysis GI Medical History: Reports: Hx Gastroesophageal Reflux Disease Psychiatric Medical History: Reports: Hx Attention Deficit Hyperactivity Dis order, Hx Bipolar Disorder Past Surgical History: Reports: Hx Oral Surgery - Immunizations Hx Diphtheria, Pertussis, Tetanus Vaccination: Yes Review of Systems - Review of Systems Notes: Constitutional: Negative for fever. HENT: Negative for sore throat. Eyes: Negative for visual changes. Cardiovascular: Negative for chest pain. Respiratory: Negative for shortness of breath. Gastrointestinal: Negative for abdominal pain, vomiting or diarrhea. Genitourinary: Negative for dysuria. Musculoskeletal: Positive for body pain, leg cramping Skin: Negative for rash. Neurological: Negative for headaches, positive for tingling and numbness 10 point review of system otherwise negative unless otherwise marked in HPI Physical Exam - Vital signs Vitals: Temp Pulse Resp BP Pulse Ox 98.4 F 72 16 124/76 97 04/16/18 17:15 04/16/18 17:15 04/16/18 17:15 04/16/18 17:15 04/16/18 17:15 Interpretation: Normal Notes: PHYSICAL EXAMINATION: GENERAL: Well-appearing, well-nourished and in no acute distress. HEAD: Atraumatic, normocephalic. EYES: Pupils equal round and reactive to light, extraocular movements intact, sclera anicteric, conjunctiva are normal. ENT: nares patent, oropharynx clear without exudates. Moist mucous membranes. NECK: Normal range of motion, supple without lymphadenopathy LUNGS: Breath sounds clear to auscultation bilaterally and equal. No wheezes rales or rhonchi. HEART: Regular rate and rhythm without murmurs ABDOMEN: Soft, nontender, normoactive bowel sounds. No guarding, no rebound. No masses appreciated. EXTREMITIES: Normal range of motion, no pitting or edema. No cyanosis. NEUROLOGICAL: No focal neurological deficits. Moves all extremities spontaneously and on command. Face symmetric. Tongue protrudes midline. Extraocular motions intact. Pupils are 2 mm and equally reactive. Normal speech, normal gait. 5 out of 5 strength in both the distal and proximal upper and lower extremities bilaterally. Sensation is grossly intact throughout. Finger to nose testing normal. Pronator drift normal. PSYCH: Normal mood, normal affect. SKIN: Warm, Dry, normal turgor, no rashes or lesions noted. Course - Re-evaluation Re-evalutation: 04/16/18 18:37 Patient presents with multiple vague complaints that did not appear to be concerning for any acute life-threatening pathology. Vitals are within normal limits at triage and at time of discharge. Physical examination is unremarkable. Patient has tolerated oral intake without difficulty. Patient was not noted to be in distress at any point during their ER visit. At this time, based on the reassuring evaluation, I do not suspect an acute UT, pulmonary embolus, aortic dissection, acute intra-abdominal pathology, stroke, or sepsis.Will discharge with return precautions and follow-up recommendations. Verbal discharge instructions given a the bedside and opportunity for questions given. Medication warnings reviewed. Patient is in agreement with this plan and has verbalized understanding of return precautions and the need for primary care follow-up in the next 24-72 hours. - Vital Signs Vital signs: Temp Pulse Resp BP Pulse Ox 98.9 F 58 L 16 135/93 H 99 04/16/18 19:01 04/16/18 19:01 04/16/18 19:01 04/16/18 19:01 04/16/18 19:01 - Laboratory Result Diagrams: 04/16/18 17:32 04/16/18 17:32 Laboratory results interpreted by me: 04/16/18 04/16/18 17:32 17:32 RDW 14.3 H Glucose 113 H Calcium 10.5 H Discharge - Discharge Clinical Impression: Multiple complaints, Sore throat, Total body pain Fatigue Qualifiers: Fatigue type: unspecified Qualified Code(s): R53.83 - Other fatigue Condition: Good Disposition: HOME, SELF-CARE Additional Instructions: Please return to the emergency room immediately if you experience any concerning symptoms including high fevers, severe headache, chest pain, difficulty breathing, abdominal pain, slurred speech, numbness or weakness in your arms or legs, or any other symptom that concerns you. Referrals: JUAN JOSÉ MEDINA MD [ACTIVE STAFF] - Follow up as needed
[2018-04-16 19:03] VITALS: BP 135/93
== END 2018-04-16 19:11 | disposition home or self-care (01) ==
LOC: ER 17:09
DX: J02.9 Acute pharyngitis, unspecified (principal); R10.9 Unspecified abdominal pain; R51 Headache; R13.10 Dysphagia, unspecified; R06.02 Shortness of breath; R53.83 Other fatigue; H53.8 Other visual disturbances; F17.200 Nicotine dependence, unspecified, uncomplicated; R25.2 Cramp and spasm
CPT/HCPCS: 99283; 36415; 85025; 80053; 81001; 80307; J3490 ×3

== ENCOUNTER 2018-05-16 16:15 | Emergency (ER) | payer MEDICAID ==
[2018-05-16 17:15] LABS: ABSOLUTE BASOPHILS # (AUTO) 0.1 10^3/uL (0.0-0.2); ABSOLUTE EOSINOPHILS # (AUTO) 0.1 10^3/uL (0.0-0.6); ABSOLUTE LYMPHOCYTES (AUTO) 2.4 10^3/uL (0.5-4.7); ABSOLUTE MONOCYTES (AUTO) 0.4 10^3/uL (0.1-1.4); ABSOLUTE NEUT (AUTO) 5.4 10^3/uL (1.7-8.2); BASOPHILS % (AUTO) 1.1 % (0-2); EOSINOPHILS % (AUTO) 1.1 % (0-6); HEMATOCRIT 47.9 % (37.9-51.0); HEMOGLOBIN 16.3 g/dL (13.5-17.0); LYMPHOCYTES % (AUTO) 28.8 % (13-45); MEAN CORPUSCULAR HGB CONC 34.1 g/dL (32.0-36.0); MEAN CORPUSCULAR VOLUME 88 fl (80-97); MONOCYTES % (AUTO) 5.1 % (3-13); PLATELET COUNT 325 10^3/uL (150-450); RED BLOOD COUNT 5.44 10^6/uL (4.35-5.55); SEGMENTED NEUTROPHILS % (AUTO) 63.9 % (42-78); TOTAL CELLS COUNTED % (AUTO) 100 %; WHITE BLOOD COUNT 8.4 10^3/uL (4.0-10.5)
--- NOTE | 2018-05-16 17:19 | RADIOLOGY REPORT (SQ) ---
EXAM DESCRIPTION: CT HEAD WITHOUT COMPLETED DATE/TIME: 05/16/2018 5:04 pm REASON FOR STUDY: bed [address] ?new onset seizures COMPARISON: 05/29/2015 TECHNIQUE: Axial images acquired through the brain without intravenous contrast. Images reviewed wi th bone, brain and subdural windows. Additional sagittal and coronal reconstructions were generated. Images stored on PACS. All CT scanners at this facility use dose modulation, iterative reconstruction, and/or weight based d osing when appropriate to reduce radiation dose to as low as reasonably achievable (ALARA). [facility]: Dose Right [facility]: CareDose [facility]: Dose Right [facility]: Teradose 4D [facility]: Smart [employer] RADIATION DOSE: CT Rad equipment meets quality standard of care and radiation dose reduction techniq ues were employed. CTDIvol: 53.2 mGy. DLP: 937 mGy-cm. mGy. LIMITATIONS: None. FINDINGS: VENTRICLES: Normal size and contour. CEREBRUM: No masses. No hemorrhage. No midline shift. No evidence for acute infarction. Normal gra y/white matter differentiation. No areas of low density in the white matter. CEREBELLUM: No masses. No hemorrhage. No alteration of density. No evidence for acute infarction. EXTRAAXIAL SPACES: No fluid collections. No masses. ORBITS AND GLOBE: No intra- or extraconal masses. Normal contour of globe without masses. CALVARIUM: No fracture. PARANASAL SINUSES: No fluid or mucosal thickening. SOFT TISSUES: No mass or hematoma. OTHER: No other significant finding. IMPRESSION: NORMAL BRAIN CT WITHOUT CONTRAST. EVIDENCE OF ACUTE STROKE: NO. COMMENT: Quality ID # [id number]: Final reports with documentation of one or more dose reduction techniques (e.g., Automated exposure control, adjustment of the mA and/or kV according to patient size, use of iterative reconstruction technique) TECHNICAL DOCUMENTATION: JOB ID: [id number] [employer]- All Rights Reserved Reading location - IP/workstation name: [email or web address]
--- NOTE | 2018-05-16 17:38 | EKG REPORT ---
SEVERITY:- NORMAL ECG - SINUS RHYTHM : Confirmed by: Kavon Moore MD 16-May-2018 17:37:08
[2018-05-16 17:42] LABS: ALANINE AMINOTRANSFERASE 28 U/L (21-72); ALKALINE PHOSPHATASE 83 U/L (38-126); ANION GAP 9 (5-19); ASPARTATE AMINO TRANSFERASE 30 U/L (17-59); BILIRUBIN,DIRECT 0.3 mg/dL (0.0-0.4); BILIRUBIN,TOTAL 0.7 mg/dL (0.2-1.3); BLOOD UREA NITROGEN 9 mg/dL (7-20); CALCIUM 10.5 mg/dL (8.4-10.2); CARBON DIOXIDE 30 mmol/L (22-30); CHLORIDE 104 mmol/L (98-107); GLUCOSE 95 mg/dL (75-110); POTASSIUM 4.4 mmol/L (3.6-5.0); SODIUM 142.8 mmol/L (137-145); TOTAL PROTEIN 7.7 g/dL (6.3-8.2)
[2018-05-16 17:50] LABS: ALCOHOL < 10 mg/dL (NONE DETECTED)
[2018-05-16 19:48] LABS: APPEARANCE,URINE CLEAR; BILIRUBIN,URINE NEGATIVE (NEGATIVE); COLOR,URINE YELLOW; GLUCOSE, URINE NEGATIVE (NEGATIVE); KETONES,URINE 20 mg/dL (NEGATIVE); LEUKOCYTE ESTERASE,URINE NEGATIVE (NEGATIVE); NITRITE,URINE NEGATIVE (NEGATIVE); PROTEIN,URINE NEGATIVE (NEGATIVE); URINE SPECIFIC GRAVITY 1.008; UROBILINOGEN,URINE NEGATIVE mg/dL (<2.0)
[2018-05-16 20:05] LABS: URINE AMPHETAMINES SCREEN NEGATIVE; URINE BARBITURATES SCREEN NEGATIVE; URINE BENZODIAZEPINES SCREEN NEGATIVE; URINE COCAINE SCREEN NEGATIVE; URINE MARIJUANA (THC) SCREEN NEGATIVE; URINE METHADONE SCREEN NEGATIVE; URINE PHENCYCLIDINE SCREEN NEGATIVE
--- NOTE | 2018-05-16 20:39 | ER Document Report ---
ED General - General Chief Complaint: Probable Seizure Stated Complaint: NECK/BACK PAIN Time Seen by Provider: 05/16/18 16:26 TRAVEL OUTSIDE OF THE [place] IN LAST 30 DAYS: No - HPI Notes: Patient presents to the emergency department for evaluation via EMS. He is a very difficult historian. He reports a history of schizophrenia and noncompliance with his medications. He states he was in a "stressful si tuation." In short he was speaking with a girl he likes. He does not remember what happened. It was reported that he had seizure activity. He was incontinent of urine. He denies any history of seizures. He denies any recent head traumas. He states that this time he feels normal and has no complaints or concerns. - Related Data Allergies/Adverse Reactions: No Known Allergies Allergy (Verified 12/27/16 00:21) Past Medical History - General Information source: Patient, Emergency Med Personnel - Social History Smoking Status: Current Every Day Smoker Family History: Reviewed & Not Pertinent Patient has suicidal ideation: No Patient has homicidal ideation: No - Past Medical History Cardiac Medical History: Reports: Hx Hypercholesterolemia Endocrine Medical History: Denies: Hx Diabetes Mellitus Type 1, Hx Diabetes Mellitus Type 2 Renal/ Medical History: Denies: Hx Peritoneal Dialysis GI Medical History: Reports: Hx Gastroesophageal Reflux Disease Psychiatric Medical History: Reports: Hx Attention Deficit Hyperactivity Disorder, Hx Bipolar Disorder Past Surgical History: Reports: Hx Oral Surgery - Immunizations Hx Diphtheria, Pertussis, Tetanus Vaccination: Yes Review of Systems - Review of Systems Constitutional: No symptoms reported EENT: No symptoms reported Cardiovascular: No symptoms reported Respiratory: No symptoms reported Gastrointestinal: No symptoms reported Musculoskeletal: Back pain, Joint pain Neurological/Psychological: See HPI Physical Exam - Vital signs Notes: Patient afebrile, Vitals within normal limits on telemetry. - Notes Notes: Patient is awake and alert, slightly agitated. His pants are wet from urine. Head is normocephalic and atraumatic. Pupils are equal and round, reactive to light. Oral mucosa is moist. Pharynx is without erythema, uvula is midline. Neck is supple without meningismus. Heart is regular rate and rhythm, lungs are clear to auscultation bilaterally. Abdomen is soft, nontender, normoactive bowel sounds. Patient is oriented x3. Cranial nerves II through XII are grossly intact without focal neurological deficits. Strength is plus 5 out of 5 bilateral upper and lower extremities. Intact finger nose finger, rapid alternating movements, heel to kerns. Reflexes symmetrical. He at first exhibits mildly pressured speech but is cooperative, mood and affect are normal. Course - Re-evaluation Re-evalutation: 05/16/18 20:38 Patient presents to the emergency department for evaluation. It is assumed initially that the patient did have a significant seizure. He was placed on seizure precautions. Laboratory investigations and imaging ordered as per protocol. Laboratory medications were largely unremarkable. Urine tox screen was negative. Patient CT scan did not reveal any acute abnormality. The patient remained stable throughout the course of his stay. There are multiple possible etiologies for this patient's seizures at this time. He has been stable neurologically at baseline. We did discuss the fact that he is under no circumstances to drive. He states he does not drive. I told him that he needs to follow-up with primary care in the next 1-2 weeks. He voiced understanding to this. He is to return to the emergency department with worsening or new concerning symptoms of any sort, or certainly if his seizures recur. - Laboratory Result Diagrams: 05/16/18 16:50 05/16/18 16:50 Laboratory results interpreted by me: 05/16/18 05/16/18 16:50 19:30 Calcium 10.5 H Urine Ketones 20 H - Diagnostic Test Radiology reviewed: Reports reviewed - EKG Interpretation by Me Additional EKG results interpreted by me: 05/16/18 20:39 Sinus bradycardia with a rate of 57 bpm. Normal axis and intervals, no acute ST changes concerning for ischemia or infarction. Discharge - Discharge Clinical Impression: Seizure Condition: Fair Disposition: HOME, SELF-CARE Instructions: New Seizure ([facility]) Additional Instructions: Absolutely no driving! Follow-up with your doctor in 1-2 weeks. If you have another seizure, or if you have worsening or new concerning symptoms of any sort, return to the emergency department for evaluation.
[2018-05-16 21:30] VITALS: BP 130/68
== END 2018-05-16 21:28 | disposition home or self-care (01) ==
LOC: ER 16:15
DX: R56.9 Unspecified convulsions (principal); M54.2 Cervicalgia; F17.200 Nicotine dependence, unspecified, uncomplicated; E78.00 Pure hypercholesterolemia, unspecified
CPT/HCPCS: 36415; 70450; 80053; 80307; 81001; 83735; 85025; 93005; 93010; 99285

== ENCOUNTER 2018-05-23 10:59 | Emergency (ER) | payer MEDICAID ==
[2018-05-23 11:05] VITALS: BP 132/85
[2018-05-23] MEDS ORDERED: KETOROLAC TROMETHAMINE INJ/PF 30 MG/1 ML SDV IM ONE (11:27)
--- NOTE | 2018-05-23 11:28 | ER Document Report ---
HPI - HPI Time Seen by Provider: 05/23/18 11:18 Pain Level: 2 Notes: Patient is a 28-year-old male with no significant past medical history aside from schizophrenia and seizures who presents to the ED complaining of bilateral mid back pain ongoing over the last several days, but having issues with it over the last 1-2 months. Patient has had issues like this previously. Patient states that he does lift objects at work and started feeling tightness throughout the day. Patient states that bending twisting of the trunk make his pain worse. Pain does not radiate. He is eating and drinking without any difficulties. He is urinating normally and having normal bowel movements. He has not had any injections or procedures to his lower back. Denies any IV drug abuse. No other concerns or complaints. Denies any headache, fever, head injury, neck pain, changes in vision/speech/mentation/hearing, URI, sore throat, chest pain, palpitations, syncope, cough, shortness of breath, wheeze, dyspnea, abdominal pain, nausea/vomiting/diarrhea, urinary retention, dysuria, hematuria, loss of control of bowel or bladder, numbness/tingling, saddle anesthesia, muscle paralysis/weakness, or rash. - ROS Systems Reviewed and Negative: Yes All other systems reviewed and negative - REPRODUCTIVE Reproductive: DENIES: : Past Medical History - Social History Smoking Status: Current Every Day Smoker Family History: Reviewed & Not Pertinent - Past Medical History Cardiac Medical History: Reports: Hx Hypercholesterolemia Endocrine Medical History: Denies: Hx Diabetes Mellitus Type 1, Hx Diabetes Mellitus Type 2 Renal/ Medical History: Denies: Hx Peritoneal Dialysis GI Medical History: Reports: Hx Gastroesophageal Reflux Disease Psychiatric Medical History: Reports: Hx Attention Deficit Hyperactivity Disorder, Hx Bipolar Disorder Past Surgical History: Reports: Hx Oral Surgery - Immunizations Hx Diphtheria, Pertussis, Tetanus Vaccination: Yes Vertical Provider Document - CONSTITUTIONAL Agree With Documented VS: Yes Notes: PHYSICAL EXAMINATION: GENERAL: Well-appearing, well-nourished and in no acute distress. LUNGS: Breath sounds clear to auscultation bilaterally and equal. No wheezes rales or rhonchi. HEART: Regular rate and rhythm without murmurs, rubs, gallops. ABDOMEN: Soft, nontender, nondistended abdomen. No guarding, no rebound. No masses appreciated. Normal bowel sounds present. No CVA tenderness bilaterally. No pulsatile mass Musculoskeletal: LE's b/l: FROM to passive/active. Strength 5+/5. No deficits noted. No bony tenderness of extremities. Back: FROM to passive/active. Strength 5+/5. No vertebral point tenderness, stepoffs, or deformities. No other bony tenderness, erythema, swelling, or ecchymosis. SLR negative b/l. + mild reproducible tenderness to the T- paraspinal mm b/l. Mild spasming. No SI jt tenderness. No foot drop Extremities: No cyanosis, clubbing, or edema b/l. Peripheral pulses 2+. Capillary refill less than 2 seconds. NEUROLOGICAL: Normal speech, normal gait. Normal sensory, motor exams. Reflexes 2+ b/l. PSYCH: Normal mood, normal affect. SKIN: Warm, Dry, normal turgor, no rashes or lesions noted. - INFECTION CONTROL TRAVEL OUTSIDE OF THE [place] IN LAST 30 DAYS: No Course - Re-evaluation Re-evalutation: 05/23/18 11:25 Patient is an afebrile, well-hydrated, 28-year-old male who presents to the ED with b/l thoracic back pain, suspect secondary to spasming. Vitals are acceptable. PE is otherwise unremarkable for any focal neurological deficits. Patient was given Toradol. He has no significant tachycardia, tachypnea, or hypoxia. He is nontoxic-appearing and is tolerating p.o. without difficulties. There are no signs of infection. No other red flag symptoms noted. No other labs or imaging warranted at this time based on H&P. Low suspicion for any meningitis, fracture, expanding/ruptured AAA, cauda equina syndrome, epidural mass lesion/abscess, herniated disc causing severe spinal stenosis, or other systemic infection at this time. Patient is aware that his condition can change from initial presentation and that he needs monitor symptoms closely for any acute changes. I will send him home with a prescription for naproxen and robaxin. Conservative measures otherwise for symptoms. Recheck with your PCM in 3-5 days. Consider consult with orthopedic/physical therapy. Return to the ED with any worsening/concerning symptoms otherwise as reviewed discharge. Patient is in agreement. - Vital Signs Vital signs: Temp Pulse Resp BP Pulse Ox 97.4 F 82 16 132/85 H 93 05/23/18 11:04 05/23/18 11:04 05/23/18 11:04 05/23/18 11:04 05/23/18 11:04 Discharge - Discharge Clinical Impression: Muscle spasm Thoracic back pain Qualifiers: Chronicity: acute Back pain laterality: bilateral Qualified Code(s): M54.6 - Pain in thoracic spine Condition: Stable Disposition: HOME, SELF-CARE Instructions: Muscle Relaxers ([facility]), Stretching Exercises for the Back ([facility]) Additional Instructions: Rest, Ice Tylenol/ibuprofen as needed Light stretches daily Strength exercises as able Moist heat and massage may help F/u with your PCP in 3-5 days for a recheck Consider consult(s) with Orthopedics/physical therapy for ongoing/worsening symptoms Return to the ED with any worsening symptoms and/or development of fever, headache, chest pain, palpitations, syncope, shortness of breath, trouble breathing, abdominal pain, n/v/d, blood in stool/urine, loss of control of bowel/bladder, urinary retention, muscle weakness/paralysis, saddle anesthesia, numbness/tingling, or other worsening symptoms that are concerning to you. Prescriptions: Methocarbamol [Robaxin] 500 mg PO BID #6 tablet Naproxen 500 mg PO BID #10 tablet Forms: Elevated Blood Pressure, Smoking Cessation Education Referrals: [facility] [Provider Group] - Follow up as needed
== END 2018-05-23 12:21 | disposition home or self-care (01) ==
LOC: ER 10:59
DX: M54.6 Pain in thoracic spine (principal); M62.830 Muscle spasm of back; M54.9 Dorsalgia, unspecified; F17.200 Nicotine dependence, unspecified, uncomplicated; X50.1XXA Overexertion from prolonged static or awkward postures, initial encounter
CPT/HCPCS: 99283; 96372; J1885

== ENCOUNTER 2018-05-28 04:04 | Emergency (ER) | payer MEDICAID ==
[2018-05-28 04:58] LABS: ABSOLUTE BASOPHILS # (AUTO) 0.1 10^3/uL (0.0-0.2); ABSOLUTE EOSINOPHILS # (AUTO) 0.1 10^3/uL (0.0-0.6); ABSOLUTE LYMPHOCYTES (AUTO) 2.5 10^3/uL (0.5-4.7); ABSOLUTE MONOCYTES (AUTO) 0.6 10^3/uL (0.1-1.4); ABSOLUTE NEUT (AUTO) 5.8 10^3/uL (1.7-8.2); BASOPHILS % (AUTO) 0.9 % (0-2); EOSINOPHILS % (AUTO) 1.4 % (0-6); HEMATOCRIT 45.6 % (37.9-51.0); HEMOGLOBIN 15.8 g/dL (13.5-17.0); LYMPHOCYTES % (AUTO) 27.4 % (13-45); MEAN CORPUSCULAR HEMOGLOBIN 30.6 pg (27.0-33.4); MEAN CORPUSCULAR HGB CONC 34.6 g/dL (32.0-36.0); MEAN CORPUSCULAR VOLUME 88 fl (80-97); MONOCYTES % (AUTO) 6.5 % (3-13); PLATELET COUNT 278 10^3/uL (150-450); RED BLOOD COUNT 5.15 10^6/uL (4.35-5.55); SEGMENTED NEUTROPHILS % (AUTO) 63.8 % (42-78); TOTAL CELLS COUNTED % (AUTO) 100 %; WHITE BLOOD COUNT 9.1 10^3/uL (4.0-10.5)
[2018-05-28 05:07] LABS: ANION GAP 12 (5-19)
[2018-05-28 05:14] LABS: ALANINE AMINOTRANSFERASE 33 U/L (21-72); ALBUMIN 4.8 g/dL (3.5-5.0); ALKALINE PHOSPHATASE 80 U/L (38-126); ASPARTATE AMINO TRANSFERASE 33 U/L (17-59); BILIRUBIN,DIRECT 0.3 mg/dL (0.0-0.4); BILIRUBIN,TOTAL 0.4 mg/dL (0.2-1.3); BLOOD UREA NITROGEN 6 mg/dL (7-20); CALCIUM 10.8 mg/dL (8.4-10.2); CARBON DIOXIDE 27 mmol/L (22-30); CHLORIDE 105 mmol/L (98-107); GLUCOSE 94 mg/dL (75-110); POTASSIUM 4.3 mmol/L (3.6-5.0); TOTAL PROTEIN 7.5 g/dL (6.3-8.2)
[2018-05-28 05:19] LABS: ACETAMINOPHEN < 10 ug/mL (10-30); ALCOHOL < 10 mg/dL (NONE DETECTED); SALICYLATE < 1.0 mg/dL (2.0-20.0)
[2018-05-28 05:41] LABS: APPEARANCE,URINE CLEAR; BILIRUBIN,URINE NEGATIVE (NEGATIVE); COLOR,URINE YELLOW; GLUCOSE, URINE NEGATIVE (NEGATIVE); KETONES,URINE NEGATIVE (NEGATIVE); LEUKOCYTE ESTERASE,URINE NEGATIVE (NEGATIVE); NITRITE,URINE NEGATIVE (NEGATIVE); PROTEIN,URINE NEGATIVE (NEGATIVE); URINE SPECIFIC GRAVITY 1.008; UROBILINOGEN,URINE NEGATIVE mg/dL (<2.0)
[2018-05-28 06:05] LABS: URINE AMPHETAMINES SCREEN NEGATIVE; URINE BARBITURATES SCREEN NEGATIVE; URINE BENZODIAZEPINES SCREEN NEGATIVE; URINE COCAINE SCREEN NEGATIVE; URINE MARIJUANA (THC) SCREEN NEGATIVE; URINE METHADONE SCREEN NEGATIVE; URINE PHENCYCLIDINE SCREEN NEGATIVE
--- NOTE | 2018-05-28 06:32 | ER Document Report ---
Entered by CHARLENE NAQVI SCRIBE 05/28/18 0446 Acting as scribe for:MAHESH HOWE MD ED Psych Disorder / Suicide - General Chief Complaint: Psych Problem Stated Complaint: PSYCH EVAL Time Seen by Provider: 05/28/18 04:14 Primary Care Provider: KOKI LOWRY MD [Primary Care Provider] - Follow up as needed Mode of Arrival: Ambulatory Information source: Patient Notes: 28 year old male with bipolar disorder that presents to the emergency department today with complaints of anger, frustration, suicidal ideation, and "everything that goes on in a negative world". Patient then mentions he is here because of "insanity, craziness". Patient states he last filled his psychiatric medications in January of 2018, stating at that time he weened himself off of them because he "likes his mind free". Patient states that he "does not want to take medication" and that if he is prescribed medicine he will "not take it". Patient appears somewhat angry, history is limited. Nurse reports that the patient informed her that he is staying with a friend and is "attracted to an 18 year old girl" that lives in the house. Patient also mentioned that he recently got into an argument at the [employer] and stated that he would "blow his brains out" but goes on to state that "he would never really do it". TRAVEL OUTSIDE OF THE [place] IN LAST 30 DAYS: No - Related Data Allergies/Adverse Reactions: No Known Allergies Allergy (Verified 05/28/18 04:06) Past Medical History - General Information source: Patient, [facility] Records - Social History Smoking Status: Current Every Day Smoker Lives with: Family Family History: Reviewed & Not Pertinent - Past Medical History Cardiac Medical History: Reports: Hx Hypercholesterolemia GI Medical History: Reports: Hx Gastroesophageal Reflux Disease Psychiatric Medical History: Reports: Hx Attention Deficit Hyperactivity Disorder, Hx Bipolar Disorder Past Surgical History: Reports: Hx Oral Surgery - Immunizations Hx Diphtheria, Pertussis, Tetanus Vaccination: Yes Review of Systems - Review of Systems Constitutional: No symptoms reported EENT: No symptoms reported Cardiovascular: No symptoms reported Respiratory: No symptoms reported Gastrointestinal: No symptoms reported Genitourinary: No symptoms reported Male Genitourinary: No symptoms reported Musculoskeletal: No symptoms reported Skin: No symptoms reported Hematologic/Lymphatic: No symptoms reported Neurological/Psychological: See HPI, Suicidal ideation -: Yes All other systems reviewed and negative Physical Exam - Vital signs Vitals: Temp Pulse Resp BP Pulse Ox 97.7 F 76 20 134/78 H 99 05/28/18 04:06 05/28/18 04:06 05/28/18 04:06 05/28/18 04:06 05/28/18 04:06 - Notes Notes: Physical Exam: General: Alert. HEENT: Normocephalic. Atraumatic. PERRL. Extraocular movements intact. Oropharynx clear. Neck: Supple. Non-tender. Respiratory: No respiratory distress. Clear and equal breath sounds bilaterally. Cardiovascular: Regular rate and rhythm. Abdominal: Normal Inspection. Non-tender. No distension. Normal Bowel Sounds. Back: Non-tender. No deformity or step off. Extremities: Moves all four extremities. Upper extremities: Normal inspection. Normal ROM. Lower extremities: Normal inspection. No edema. Normal ROM. Neurological: Normal cognition. AAOx4. Normal speech. Psychological: Answers questions, somewhat argumentative, angry/agitated. Skin: Warm. Dry. Normal color. Course - Vital Signs Vital signs: Temp Pulse Resp BP Pulse Ox 97.7 F 76 20 134/78 H 99 05/28/18 04:06 05/28/18 04:06 05/28/18 04:06 05/28/18 04:06 05/28/18 04:06 - Laboratory Result Diagrams: 05/28/18 04:24 05/28/18 04:24 Laboratory results interpreted by me: 05/28/18 04:24 BUN 6 L Calcium 10.8 H Salicylates < 1.0 L Acetaminophen < 10 L - EKG Interpretation by Nh EKG shows normal: Sinus rhythm, [place], Intervals, QRS Complexes, ST-T Waves Rate: Normal - 59 Rhythm: NSR Discharge - Discharge Clinical Impression: Passive suicidal ideations, Noncompliance with medication regimen Bipolar disorder Qualifiers: Active/Remission status: currently active Current bipolar episode type: hypomanic Qualified Code(s): F31.0 - Bipolar disorder, current episode hypomanic Condition: Stable Disposition: PSYCH HOSP/UNIT Referrals: KOKI LOWRY MD [Primary Care Provider] - Follow up as needed I personally performed the services described in the documentation, reviewed and edited the documentation which was dictated to the scribe in my presence, and it accurately records my words and actions.
--- NOTE | 2018-05-28 10:18 | ER Document Report ---
Doctor's Note Notes: 05/28/18 10:17 Rounds: Chart reviewed and patient interviewed. Patient is being evaluated and treated for depression and suicidal ideation. Patient says he is having a rough time lately. History of bipolar disorder. Vital signs are all normal. Lab studies were all essentially normal. Patient appears to be medically stable for transfer or discharge. Jeanine Mckeon MD
[2018-05-28] MEDS ORDERED: LITHIUM CARBONATE 300 MG CAPSULE PO SCH ×2 (11:45→22:00)
[2018-05-28] MEDS: OLANZAPINE 5 MG TABLET PO SCH ×2 (11:59→18:01)
[2018-05-28] MEDS: BENZTROPINE MESYLATE 1 MG TABLET PO SCH (11:59)
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
--- NOTE | 2018-05-28 22:51 | EKG REPORT ---
SEVERITY:- NORMAL ECG - SINUS RHYTHM : Confirmed by: Ronald Mai 28-May-2018 22:50:58
[2018-05-29] MEDS: BENZTROPINE MESYLATE 1 MG TABLET PO SCH (08:15)
--- NOTE | 2018-05-29 09:33 | PSYCHOLOGICAL NOTE ---
Psych Note - Psych Note Date seen by psych provider: 05/29/18 Time seen by psych provider: 07:45 - Chart review 0746. Re evaluation from 0850- 0854. Psych Note: Reason for Consult: 1st re evaluation, Hx Paranoid Schizophrenia/Bipolar, SI, Anxiety and Anger Contact Permissions: LATIA Zayra Banks Patient is a 28 year old male in the ED on a Voluntary overnight hold due to being off Bipolar mediations since January 2018 with recent increased stress surrounding a younger girl he likes and work. Overnight documentation indicated no issues. he has been calm, cooperative and open to treatment while in the ED. This morning he was observed eating breakfast. He denied negative side effects from medications. He stated he has an appointment with Oliver Robbins at [facility] on Tuesday and was encouraged to have them make a therapy referral. He inquired about the weather since he would be walking home (near [facility]) upon discharge. Patient was alert and oriented to self, person, place, time and situation. Mood was more euthymic with brighter affect. He denied SI/HI. He did not appear to be responding to internal stimuli as evidenced by fair eye contact, answering questions appropriately when addressed, staying on topic and discussing treatment plan. Thought processes were linear. Conversational speech was within normal limits for rate, tone and prosody. Intellectual abilities are estimated to be average. Insight, judgment and impulse control were fair as evidenced by more euthymic mood with congruent affect. Diagnosis: 296.80 (F31.9) Unspecified Bipolar and Related Disorder by History Impression/Plan: Patient is cleared from acute psychiatric services. He was voluntary and medications were started 9ha had been off Bipolar medication since January 2018). He seemed to tolerate them well since no reported or observed side effects. He denied SI/HI and no observed psychosis. He sees Dr. Oliver Robbins at [facility] and next appointment is Tuesday (05/31/18). A Patient Referral Form will be faxed to [facility] for care coordination/continuity of care. Patient encouraged to have Dr. Oliver Robbins make referral for therapy. Patient provided with outpatient MH resource sheet which highlighted [facility] for crisis/talk therapy and linkage to services. Consulted with Dr. Palomares regarding the management and care of patient. ED Physician in agreement with recommendations.
[2018-05-29] MEDS: OLANZAPINE 5 MG TABLET PO SCH (09:52)
--- NOTE | 2018-05-29 10:08 | ER Document Report ---
Doctor's Note Notes: 05/29/18 10:06 28-year-old male who presented voluntarily to this facility secondary to stating he was off his medications and he was having some tangential thoughts. He denies any auditory visual hallucinations. Patient has been off his medication states that he does not like the way they made him feel. He has been on medications here for greater than 24 hours and states that he feels better, denies any homicidal suicidal ideations, and states that he will take his medications as prescribed. They have set up SARIAH C appointment on Tuesday, 2 days from now. Patient does have an attraction to a 18-year-old female that he lives with. Patient states that he does not have any thoughts of harm towards her fear of injuring her. Patient is oriented x4 at this time. Labs and vital signs as recorded. The psychiatry/psychiatry team is seen and evaluated the patient I do not believe that the patient feels IVC criteria at this time. They have started the patient on his medications and would like to continue these until follow-up with SARIAH Fragoso.
[2018-05-29 11:20] VITALS: BP 131/69
== END 2018-05-29 11:39 | disposition home or self-care (01) ==
LOC: ER 04:04
DX: F31.0 Bipolar disorder, current episode hypomanic (principal); T43.596A Underdosing of other antipsychotics and neuroleptics, initial encounter; Z91.128 Patient's intentional underdosing of medication regimen for other reason; Z91.14 Patient's other noncompliance with medication regimen; R45.851 Suicidal ideations; F17.200 Nicotine dependence, unspecified, uncomplicated; Z91.5 Personal history of self-harm
CPT/HCPCS: 93005; 99285; 36415; 80307 ×4; 85025; 80053; 81001; 93010; J3490 ×4

== ENCOUNTER 2018-08-11 05:45 | Emergency (ER) | payer MEDICAID, OTHER ==
[2018-08-11 06:53] LABS: ABSOLUTE BASOPHILS # (AUTO) 0.1 10^3/uL (0.0-0.2); ABSOLUTE EOSINOPHILS # (AUTO) 0.2 10^3/uL (0.0-0.6); ABSOLUTE LYMPHOCYTES (AUTO) 1.8 10^3/uL (0.5-4.7); ABSOLUTE MONOCYTES (AUTO) 0.4 10^3/uL (0.1-1.4); ABSOLUTE NEUT (AUTO) 3.9 10^3/uL (1.7-8.2); BASOPHILS % (AUTO) 0.9 % (0-2); EOSINOPHILS % (AUTO) 2.8 % (0-6); HEMATOCRIT 48.7 % (37.9-51.0); HEMOGLOBIN 16.4 g/dL (13.5-17.0); LYMPHOCYTES % (AUTO) 28.2 % (13-45); MEAN CORPUSCULAR HEMOGLOBIN 29.9 pg (27.0-33.4); MEAN CORPUSCULAR HGB CONC 33.6 g/dL (32.0-36.0); MEAN CORPUSCULAR VOLUME 89 fl (80-97); MONOCYTES % (AUTO) 6.8 % (3-13); PLATELET COUNT 292 10^3/uL (150-450); RED BLOOD COUNT 5.47 10^6/uL (4.35-5.55); RED CELL DISTRIBUTION WIDTH 13.4 % (11.5-14.0); SEGMENTED NEUTROPHILS % (AUTO) 61.3 % (42-78); TOTAL CELLS COUNTED % (AUTO) 100 %; WHITE BLOOD COUNT 6.4 10^3/uL (4.0-10.5)
[2018-08-11 07:06] LABS: APPEARANCE,URINE SLIGHTLY-CLOUDY; BILIRUBIN,URINE SMALL (NEGATIVE); CALCIUM OXALATE CRYSTALS,URINE RARE /HPF; GLUCOSE, URINE NEGATIVE (NEGATIVE); KETONES,URINE TRACE mg/dL (NEGATIVE); LEUKOCYTE ESTERASE,URINE NEGATIVE (NEGATIVE); NITRITE,URINE NEGATIVE (NEGATIVE); PROTEIN,URINE 30 mg/dL (NEGATIVE); URINE SPECIFIC GRAVITY 1.031
[2018-08-11 07:07] LABS: COLOR,URINE DARK YELLOW
[2018-08-11 07:18] LABS: URINE AMPHETAMINES SCREEN NEGATIVE; URINE BARBITURATES SCREEN NEGATIVE; URINE BENZODIAZEPINES SCREEN NEGATIVE; URINE COCAINE SCREEN NEGATIVE; URINE MARIJUANA (THC) SCREEN NEGATIVE; URINE METHADONE SCREEN NEGATIVE; URINE PHENCYCLIDINE SCREEN NEGATIVE
[2018-08-11 07:21] LABS: ACETAMINOPHEN < 10 ug/mL (10-30); ALANINE AMINOTRANSFERASE 42 U/L (21-72); ALBUMIN 4.8 g/dL (3.5-5.0); ALCOHOL < 10 mg/dL (NONE DETECTED); ALKALINE PHOSPHATASE 88 U/L (38-126); ANION GAP 12 (5-19); ASPARTATE AMINO TRANSFERASE 44 U/L (17-59); BILIRUBIN,DIRECT 0.3 mg/dL (0.0-0.4); BLOOD UREA NITROGEN 13 mg/dL (7-20); CALCIUM 10.7 mg/dL (8.4-10.2); CARBON DIOXIDE 28 mmol/L (22-30); CHLORIDE 104 mmol/L (98-107); GLUCOSE 84 mg/dL (75-110); POTASSIUM 4.2 mmol/L (3.6-5.0); SALICYLATE < 1.0 mg/dL (2.0-20.0); SODIUM 143.6 mmol/L (137-145); TOTAL PROTEIN 8.3 g/dL (6.3-8.2)
--- NOTE | 2018-08-11 07:40 | EKG REPORT ---
SEVERITY:- NORMAL ECG - SINUS RHYTHM : Confirmed by: Kavon Moore MD 11-Aug-2018 07:39:14
[2018-08-11 12:08] VITALS: BP 137/80
--- NOTE | 2018-08-11 14:22 | ER Document Report ---
Entered by EKTA COMBS SCRIBE 08/11/1816 Acting as scribe for:MAHESH HOWE MD ED Psych Disorder / Suicide <HELIO LOZADA - Last Filed: 08/11/18 11:56> - General Mode of Arrival: Medic Information source: Patient, Emergency Med Personnel, H Records TRAVEL OUTSIDE OF THE [place] IN LAST 30 DAYS: No - HPI Suicide Risk Factors: Bipolar, Lack of social support, Male, No spouse Situational problems related to: Other - Homeless <MAHESH HOWE - Last Filed: 08/11/18 13:43> - General Stated Complaint: PSYCH PROBLEM Time Seen by Provider: 08/11/18 06:06 Primary Care Provider: Levy Boykin [Outside] - 08/16/18 8:45 am KOKI LOWRY MD [Primary Care Provider] - Follow up as needed Notes: Patient is a 28-year-old male presenting to the emergency department complaining of lack of sleep and food. Patient was seen living outside by law enforcement who proceeded to call EMS, patient was then picked up by EMS and brought to the emergency department. Patient states that the last meal he had was a 2-liter Dr. Sofia saldana at 22:00 last night. Patient states that he has not been taking his medication for 8 months and his prescription was last ready on July 30 but he did not have the money to purchase them. Patient states he has been homeless for about 2 weeks and when asked by the he confirms that his last visit here was 2 months ago. (MAHESH HOWE) Patient is a 28-year-old male presenting to the emergency department complaining of lack of sleep and food, as he has been homeless for the last two weeks. Patient was seen living outside by law enforcement who proceeded to call EMS, patient was then picked up by EMS and brought to the emergency department. Patient states that the last meal he had was a 2-liter Dr. Sofia saldana at 22:00 last night. Patient states that he has not been taking his medication for 8 months and his prescription was last ready on July 30 but he did not have the money to purchase them. (EKTA COMBS) - Related Data Allergies/Adverse Reactions: No Known Allergies Allergy (Verified 05/28/18 04:06) Past Medical History - General Information source: Patient, Emergency Med Personnel, [facility] Records - Social History Smoking Status: Current Every Day Smoker - vaping Cigarette use (# per day): No - Patient is a Chew tobacco use (# tins/day): No Smoking Education Provided: No Frequency of alcohol use: Occasional Drug Abuse: None Occupation: Unemployed Lives with: Homeless Family History: Reviewed & Not Pertinent - Past Medical History Cardiac Medical History: Reports: Hx Hypercholesterolemia GI Medical History: Reports: Hx Gastroesophageal Reflux Disease Psychiatric Medical History: Reports: Hx Attention Deficit Hyperactivity Disorder, Hx Bipolar Disorder Past Surgical History: Reports: Hx Oral Surgery - Immunizations Hx Diphtheria, Pertussis, Tetanus Vaccination: Yes <MAHESH HOWE - Last Filed: 08/11/18 13:43> Review of Systems - Review of Systems Constitutional: Other - homeless, hungry EENT: No symptoms reported Cardiovascular: No symptoms reported Respiratory: No symptoms reported Gastrointestinal: No symptoms reported Genitourinary: No symptoms reported Male Genitourinary: No symptoms reported Musculoskeletal: No symptoms reported Skin: No symptoms reported Hematologic/Lymphatic: No symptoms reported Neurological/Psychological: No symptoms reported -: Yes All other systems reviewed and negative <MAHESH HOWE - Last Filed: 08/11/18 13:43> Physical Exam <MAHESH HOWE - Last Filed: 08/11/18 13:43> - Vital signs Vitals: Temp 97.6 F 08/11/18 05:45 - Notes Notes: Physical Exam: General: Alert, appears well. HEENT: Normocephalic. Atraumatic. PERRL. Extraocular movements intact. Oropharynx clear. Neck: Supple. Non-tender. Respiratory: No respiratory distress. Clear and equal breath sounds bilaterally. Cardiovascular: Regular rate and rhythm. Abdominal: Normal Inspection. Non-tender. No distension. Normal Bowel Sounds. Back: Non-tender. No deformity or step off. Extremities: Moves all four extremities. Upper extremities: Normal inspection. Normal ROM. Lower extremities: Normal inspection. No edema. Normal ROM. Neurological: Trouble concentrating. Difficulty answering questions. AAOx4. No rmal speech. Psychological: Normal affect. Normal Mood. Skin: Warm. Dry. Normal color. (MAHESH HOWE) Physical Exam: General: Alert, disheveled. HEENT: Normocephalic. Atraumatic. PERRL. Extraocular movements intact. Oropharynx clear. Neck: Supple. Non-tender. Respiratory: No respiratory distress. Clear and equal breath sounds bilaterally. Cardiovascular: Regular rate and rhythm. Abdominal: Normal Inspection. Non-tender. No distension. Normal Bowel Sounds. Back: Non-tender. No deformity or step off. Extremities: Moves all four extremities. Upper extremities: Normal inspection. Normal ROM. Lower extremities: Normal inspection. No edema. Normal ROM. Neurological: Trouble concentrating. Difficulty answering questions. AAOx4. Normal speech. Psychological: Normal affect. Normal Mood. Skin: Warm. Dry. Normal color. (EKTA COMBS) Course - Laboratory Result Diagrams: 08/11/18 06:45 08/11/18 06:45 <HELIO LOZADA - Last Filed: 08/11/18 11:56> - Laboratory Result Diagrams: 08/11/18 06:45 08/11/18 06:45 - EKG Interpretation by [place] EKG shows normal: Sinus rhythm, [place], Intervals, QRS Complexes, ST-T Waves Rate: Normal - 50 Rhythm: NSR <MAHESH HOWE - Last Filed: 08/11/18 13:43> - Vital Signs Vital signs: Temp Pulse Resp BP Pulse Ox 97.4 F 59 L 14 137/80 H 100 08/11/18 12:06 08/11/18 12:06 08/11/18 12:06 08/11/18 12:06 08/11/18 12:06 - Laboratory Laboratory results interpreted by or: 08/11/18 08/11/18 06:04 06:45 Calcium 10.7 H Total Protein 8.3 H Urine Protein 30 H Urine Ketones TRACE H Urine Bilirubin SMALL H Urine Urobilinogen 2.0 H Salicylates < 1.0 L Acetaminophen < 10 L Discharge <HELIO LOZADA - Last Filed: 08/11/18 11:56> <MAHESH HOWE - Last Filed: 08/11/18 13:43> - Discharge Clinical Impression: Homeless, Noncompliance with medication regimen Bipolar disorder Qualifiers: Active/Remission status: currently active Current bipolar episode type: mixed Current episode severity: unspecified Qualified Code(s): F31.60 - Bipolar disorder, current episode mixed, unspecified Condition: Stable Disposition: HOME, SELF-CARE Additional Instructions: You have been evaluated both medical and behavioral health teams and been deemed appropriate for discharge. You are highly encouraged to [facility] Report your next appointment is 08/16/2018 at approximately 8:45 AM, please attend this appointment. You are encouraged to discuss medication management options with your provider. You have also been provided a local resources of area providers including mobile crisis contact information and economic resource assistance such as soup kitchen, food [place], and the homeless retirement. AT ANY TIME, IF YOUR SYMPTOMS CHANGE SIGNIFICANTLY OR WORSEN OR YOU DEVELOP NEW SYMPTOMS, RETURN TO THE EMERGENCY DEPARTMENT IMMEDIATELY FOR RE-EVALUATION. Referrals: KOKI LOWRY MD [Primary Care Provider] - Follow up as needed [facility] [Outside] - 08/16/18 8:45 am Scribe Attestation: 08/11/18 08:54 I personally performed the services described in the documentation, reviewed and edited the documentation which was dictated to the scribe in my presence, and it accurately records my words and actions. (MAHESH HOWE) 08/11/18 08:54 I personally performed the services described in the documentation, reviewed and edited the documentation which was dictated to the scribe in my presence, and it accurately records my words and actions. (EKTA COMBS) I personally performed the services described in the documentation, reviewed and edited the documentation which was dictated to the scribe in my presence, and it accurately records my words and actions.
== END 2018-08-11 12:12 | disposition home or self-care (01) ==
LOC: ER 05:45
DX: Z59.0 Homelessness (principal); F31.60 Bipolar disorder, current episode mixed, unspecified; Z91.14 Patient's other noncompliance with medication regimen
CPT/HCPCS: 36415; 80053; 80307; 81001; 85025; 93005; 93010; 99284

== ENCOUNTER 2018-08-14 23:56 | Emergency (ER) | payer MEDICAID ==
--- NOTE | 2018-08-15 00:13 | ER Document Report ---
Addendum entered and electronically signed by HELIO LOZADA LCSWA 08/15/18 10:56: Discharge - Discharge Clinical Impression: Noncompliance with medication regimen, Unspecified personality disorder, Homele ss Bipolar disorder Qualifiers: Active/Remission status: remission status unspecified Qualified Code(s): F31.9 - Bipolar disorder, unspecified Clinical Impression: (Ruled Out): Schizophrenia Condition: Stable Disposition: HOME, SELF-CARE Additional Instructions: You have been evaluated by both medical and behavioral health teams and have been deemed appropriate for discharge. Your appointment with your outpatient [facility] provider, [facility], has been confirmed for tomorrow 08/16/2018 at 10:30am. Please go to this appointment as scheduled. Your pharmacy, [facility], has your 3 prescriptions: Trazodone, and invega and gabapentin. These medications each have a $3 co-pay. AT ANY TIME, IF YOUR SYMPTOMS CHANGE SIGNIFICANTLY OR WORSEN OR YOU DEVELOP NEW SYMPTOMS, RETURN TO THE EMERGENCY DEPARTMENT IMMEDIATELY FOR RE-EVALUATION. Referrals: KOKI LOWRY MD [Primary Care Provider] - Follow up as needed [facility] [Outside] - 08/16/18 10:30 am Addendum entered and electronically signed by LASHELL CESPEDES DO 08/15/18 06:05: Course - Vital Signs Vital signs: Temp Pulse Resp BP Pulse Ox 97.8 F 52 L 20 112/72 97 08/15/18 02:00 08/15/18 02:00 08/15/18 02:00 08/15/18 02:00 08/15/18 02:00 - Laboratory Result Diagrams: 08/15/18 00:29 08/15/18 00:29 Laboratory results interpreted by me: 08/15/18 00:29 Sodium 146.0 H Salicylates < 1.0 L Acetaminophen < 10 L [place] < 0.2 L - EKG Interpretation by Co Additional EKG results interpreted by pr: 08/15/18 06:05 EKG is reviewed and interpreted by pr. EKG shows sinus bradycardia cardia with a rate of [address] segment elevation or depression. No ischemic T wave inversions. GA interval, QRS duration, QT intervals are within normal range. Old EKG for comparison is from August 11, 2018. Original Note: ED General - General Stated Complaint: PSYCH Time Seen by Provider: 08/15/18 00:02 Primary Care Provider: KOKI LOWRY MD [Primary Care Provider] - Follow up as needed Notes: Patient is a 28-year-old male who presents with complaints of needing to be back on his psychiatric medicines. He mentions that the him is 1 of his medications. He denies having it. He cannot tell me when last time we have. Try to get a good accurate history as the patient often will just stare off in space or just stare at me for long periods of time after asking the question. He will then sometimes randomly giggle and then go back to having a somewhat paranoid look on his face. He denies any injuries. He denies having a doctor in the area. He says he is been in [place] since 2013. He denies any other medical problems. TRAVEL OUTSIDE OF THE [place] IN LAST 30 DAYS: No - Related Data Allergies/Adverse Reactions: No Known Allergies Allergy (Verified 05/28/18 04:06) Past Medical History - Social History Smoking Status: Unknown if Ever Smoked Frequency of alcohol use: None Drug Abuse: None Family History: Reviewed & Not Pertinent - Past Medical History Cardiac Medical History: Reports: Hx Hypercholesterolemia Endocrine Medical History: Denies: Hx Diabetes Mellitus Type 1, Hx Diabetes Mellitus Type 2 Renal/ Medical History: Denies: Hx Peritoneal Dialysis GI Medical History: Reports: Hx Gastroesophageal Reflux Disease Psychiatric Medical History: Reports: Hx Attention Deficit Hyperactivity Disorder, Hx Bipolar Disorder Past Surgical History: Reports: Hx Oral Surgery - Immunizations Hx Diphtheria, Pertussis, Tetanus Vaccination: Yes Review of Systems - Review of Systems Notes: My Normal Review Basic REVIEW OF SYSTEMS: CONSTITUTIONAL : Denies fever, chills, or sweats. Denies recent illness. EENT: Denies eye, ear, throat, or mouth pain or symptoms. Denies nasal or sinus congestion. CARDIOVASCULAR: Denies chest pain. RESPIRATORY: Denies cough, cold, or chest congestion. Denies shortness of breath, difficulty breathing, or wheezing. GASTROINTESTINAL: Denies abdominal pain. Denies nausea, vomiting, or diarrhea. GENITOURINARY: Denies difficulty urinating, painful urination, burning, frequency, or blood in urine. MUSCULOSKELETAL: Denies neck or back pain or joint pain or swelling. SKIN: Denies rash or skin lesions. NEUROLOGICAL: Denies altered mental status or loss of consciousness. Denies headache. Denies weakness or paralysis or loss of use of either side. Denies problems with gait or speech. Denies sensory or motor loss. PSYCHIATRIC: Schizophrenia not on medication. ALL OTHER SYSTEMS REVIEWED AND NEGATIVE. Physical Exam - Vital signs Vitals: Temp Pulse Resp BP Pulse Ox 97.8 F 52 L 20 112/72 97 08/15/18 02:00 08/15/18 02:00 08/15/18 02:00 08/15/18 02:00 08/15/18 02:00 - Notes Notes: General Appearance: Well nourished, alert, cooperative, no acute distress, no obvious discomfort. Vitals: reviewed, See vital signs table. Head: no swelling or tenderness to the head Eyes: PERRL, EOMI, Conjuctiva clear Mouth: No decreasd moisture Lungs: No wheezing, No rales, No rhonci, No accessory muscle use, good air exchange bilaterally. Heart: Normal rate, Regular rythm, No murmur, no rub Abdomen: Normal BS, soft, No rigidity, No abdominal tenderness, No guarding, no rebound, no abdominal masses, no organomegaly Extremities: strength 5/5 in all extremities, good pulses in all extremities, no edema. Skin: warm, dry, appropriate color, no rash Neuro: speech clear, oriented x 3, odd affect, responds appropriately to quest ions. Cranial nerves II through XII are intact. Patient moves all extremities without difficulty. Distal sensation intact. Course - Re-evaluation Re-evalutation: 08/15/18 04:23 Patient is medically stable for mental health evaluation. - Vital Signs Vital signs: Temp Pulse Resp BP Pulse Ox 97.8 F 52 L 20 112/72 97 08/15/18 02:00 08/15/18 02:00 08/15/18 02:00 08/15/18 02:00 08/15/18 02:00 - Laboratory Result Diagrams: 08/15/18 00:29 08/15/18 00:29 Laboratory results interpreted by me: 08/15/18 00:29 Sodium 146.0 H Salicylates < 1.0 L Acetaminophen < 10 L [place] < 0.2 L Discharge - Discharge Clinical Impression: Noncompliance with medication regimen Schizophrenia Qualifiers: Schizophrenia type: unspecified Qualified Code(s): F20.9 - Schizophrenia, unspecified Condition: Stable Disposition: PSYCH HOSP/UNIT Referrals: KOKI LOWRY MD [Primary Care Provider] - Follow up as needed
[2018-08-15 00:41] LABS: ABSOLUTE BASOPHILS # (AUTO) 0.1 10^3/uL (0.0-0.2); ABSOLUTE EOSINOPHILS # (AUTO) 0.2 10^3/uL (0.0-0.6); ABSOLUTE LYMPHOCYTES (AUTO) 2.4 10^3/uL (0.5-4.7); ABSOLUTE MONOCYTES (AUTO) 0.5 10^3/uL (0.1-1.4); ABSOLUTE NEUT (AUTO) 3.5 10^3/uL (1.7-8.2); EOSINOPHILS % (AUTO) 3.4 % (0-6); HEMATOCRIT 44.2 % (37.9-51.0); HEMOGLOBIN 14.8 g/dL (13.5-17.0); LYMPHOCYTES % (AUTO) 36.1 % (13-45); MEAN CORPUSCULAR HEMOGLOBIN 29.4 pg (27.0-33.4); MEAN CORPUSCULAR HGB CONC 33.6 g/dL (32.0-36.0); MEAN CORPUSCULAR VOLUME 88 fl (80-97); PLATELET COUNT 257 10^3/uL (150-450); RED BLOOD COUNT 5.05 10^6/uL (4.35-5.55); RED CELL DISTRIBUTION WIDTH 13.3 % (11.5-14.0); SEGMENTED NEUTROPHILS % (AUTO) 52.5 % (42-78); TOTAL CELLS COUNTED % (AUTO) 100 %; WHITE BLOOD COUNT 6.8 10^3/uL (4.0-10.5)
[2018-08-15 00:57] LABS: ALANINE AMINOTRANSFERASE 39 U/L (21-72); ALBUMIN 4.5 g/dL (3.5-5.0); ALKALINE PHOSPHATASE 70 U/L (38-126); ANION GAP 12 (5-19); ASPARTATE AMINO TRANSFERASE 48 U/L (17-59); BILIRUBIN,DIRECT 0.2 mg/dL (0.0-0.4); BILIRUBIN,TOTAL 0.9 mg/dL (0.2-1.3); BLOOD UREA NITROGEN 20 mg/dL (7-20); CALCIUM 10.1 mg/dL (8.4-10.2); CARBON DIOXIDE 29 mmol/L (22-30); CHLORIDE 105 mmol/L (98-107); GLUCOSE 98 mg/dL (75-110); TOTAL PROTEIN 7.7 g/dL (6.3-8.2)
[2018-08-15 01:01] LABS: ACETAMINOPHEN < 10 ug/mL (10-30); ALCOHOL < 10 mg/dL (NONE DETECTED); LITHIUM < 0.2 mEq/L (0.6-1.2); SALICYLATE < 1.0 mg/dL (2.0-20.0)
[2018-08-15 08:05] LABS: APPEARANCE,URINE CLEAR; BILIRUBIN,URINE NEGATIVE (NEGATIVE); CALCIUM OXALATE CRYSTALS,URINE FEW /HPF; COLOR,URINE DARK YELLOW; GLUCOSE, URINE NEGATIVE (NEGATIVE); KETONES,URINE NEGATIVE (NEGATIVE); LEUKOCYTE ESTERASE,URINE NEGATIVE (NEGATIVE); NITRITE,URINE NEGATIVE (NEGATIVE); PROTEIN,URINE 30 mg/dL (NEGATIVE); URINE SPECIFIC GRAVITY 1.026
[2018-08-15 08:26] LABS: URINE AMPHETAMINES SCREEN NEGATIVE; URINE BARBITURATES SCREEN NEGATIVE; URINE BENZODIAZEPINES SCREEN NEGATIVE; URINE COCAINE SCREEN NEGATIVE; URINE MARIJUANA (THC) SCREEN NEGATIVE; URINE METHADONE SCREEN NEGATIVE; URINE PHENCYCLIDINE SCREEN NEGATIVE
--- NOTE | 2018-08-15 11:38 | ER Document Report ---
Doctor's Note Notes: 08/15/18 11:37 Homeless 28-year-old male with past medical history as recorded. He has not taken his medications. He has an appointment tomorrow with SARIAH Fragoso at 10:45 AM. Patient's medications are at the pharmacy but he states he cannot afford them. They cost $9 in total. Patient has no auditory or visual hallucinations at this time. He denies any suicidal ideations. The behavioral health team is seen and assessed the patient and they do not believe that the patient feels IVC requirements at this time. They would like the patient discharged. We have verified his appointment tomorrow. I have provided monetarily $9 to help fill his prescriptions. Patient is very pleased with this plan.
[2018-08-15 11:45] VITALS: BP 127/76
--- NOTE | 2018-08-16 10:27 | EKG REPORT ---
SEVERITY:- OTHERWISE NORMAL ECG - SINUS BRADYCARDIA : Confirmed by: Ronald Mai 16-Aug-2018 10:26:53
== END 2018-08-15 11:45 | disposition home or self-care (01) ==
LOC: ER 23:56
DX: F31.9 Bipolar disorder, unspecified (principal); F60.9 Personality disorder, unspecified; Z91.14 Patient's other noncompliance with medication regimen; Z59.0 Homelessness
CPT/HCPCS: 36415; 80053; 80178; 80307; 81001; 85025; 93005; 93010; 99284

== ENCOUNTER 2018-08-16 07:36 | Emergency (ER) | payer MEDICAID ==
[2018-08-16 07:46] VITALS: BP 115/68
--- NOTE | 2018-08-16 12:59 | ER Document Report ---
Entered by PILY PONCE SCRIBE 08/16/18 0909 Acting as scribe for:MAHESH HOWE MD ED General - General Chief Complaint: Back Pain Stated Complaint: BACK PAIN Time Seen by Provider: 08/16/18 08:49 Primary Care Provider: KOKI LOWRY MD [Primary Care Provider] - Follow up as needed Mode of Arrival: Ambulatory Information source: Patient Notes: Patient is a 28 year old male with bipolar disorder, depression, chronic back pain and a history of suicidal ideation presents to the emergency department complaining of back pain onset yesterday. Patient describes the pain as "inflammation" that started after he was discharged from this ED yesterday. Patient states the pain is normally resolved with naproxen and muscle relaxers. Patient presented to the emergency department on 05/28, 08/11, and 08/14 due to psychiatric problems. He was discharged home yesterday with prescriptions for trazodone, invega and gabapentin which he was able to fill. He has a follow up appointment with [facility] at 1045 today. TRAVEL OUTSIDE OF THE [place]. IN LAST 30 DAYS: No - Related Data Allergies/Adverse Reactions: No Known Allergies Allergy (Verified 05/28/18 04:06) Past Medical History - General Information source: Patient - Social History Smoking Status: Current Every Day Smoker Cigarette use (# per day): Yes Chew tobacco use (# tins/day): No Smoking Education Provided: No Frequency of alcohol use: None Family History: Reviewed & Not Pertinent - Past Medical History Cardiac Medical History: Reports: Hx Hypercholesterolemia GI Medical History: Reports: Hx Gastroesophageal Reflux Disease Psychiatric Medical History: Reports: Hx Attention Deficit Hyperactivity Disorder, Hx Bipolar Disorder Past Surgical History: Reports: Hx Oral Surgery - Immunizations Hx Diphtheria, Pertussis, Tetanus Vaccination: Yes Review of Systems - Review of Systems Constitutional: No symptoms reported EENT: No symptoms reported Cardiovascular: No symptoms reported Respiratory: No symptoms reported Gastrointestinal: No symptoms reported Genitourinary: No symptoms reported Male Genitourinary: No symptoms reported Musculoskeletal: See HPI, Back pain Skin: No symptoms reported Hematologic/Lymphatic: No symptoms reported Neurological/Psychological: No symptoms reported -: Yes All other systems reviewed and negative Physical Exam - Vital signs Vitals: Temp Pulse Resp BP Pulse Ox 97.6 F 59 L 16 115/68 99 08/16/18 07:45 08/16/18 07:45 08/16/18 07:45 08/16/18 07:45 08/16/18 07:45 - Notes Notes: GENERAL: Alert, interacts well. No acute distress. HEAD: Normocephalic, atraumatic. EYES: Pupils equal, round, and reactive to light. Extraocular movements intact. ENT: Oral mucosa moist, tongue midline. NECK: Full range of motion. Supple. Trachea midline. LUNGS: Clear to auscultation bilaterally, no wheezes, rales, or rhonchi. No respiratory distress. HEART: Regular rate and rhythm. No murmurs, gallops, or rubs. ABDOMEN: Soft, non-tender. Non-distended. Bowel sounds present in all 4 quadrants. No guarding, rigidity, or rebound. EXTREMITIES: Moves all 4 extremities spontaneously. No edema, radial and dorsalis pedis pulses 2/4 bilaterally. No cyanosis. NEUROLOGICAL: Alert and oriented x3. Normal speech. PSYCH: Normal affect, normal mood. SKIN: Warm, dry, normal turgor. No rashes or lesions noted. BACK: No tenderness to palpation or percussion. Course - Vital Signs Vital signs: Temp Pulse Resp BP Pulse Ox 97.6 F 59 L 16 115/68 99 08/16/18 07:45 08/16/18 07:45 08/16/18 07:45 08/16/18 07:45 08/16/18 07:45 Discharge - Discharge Clinical Impression: Back pain Qualifiers: Back pain location: low back pain Chronicity: acute Back pain laterality: unspecified Sciatica presence: without sciatica Qualified Code(s): M54.5 - Low back pain Condition: Stable Disposition: HOME, SELF-CARE Additional Instructions: Get the generic version of Aleve from a place like [facility]. Take 2 tablets twice daily for your low back pain. Be sure you drink plenty of water. Be sure you take your regularly prescribed medications. Follow-up with your primary care provider if your back does not improve. Do not miss your appointment at [facility] that is scheduled for this morning. Referrals: KOKI LOWRY MD [Primary Care Provider] - Follow up as needed Scribe Attestation: 08/16/18 09:09 I personally performed the services described in the documentation, reviewed and edited the documentation which was dictated to the scribe in my presence, and it accurately records my words and actions. I personally performed the services described in the documentation, reviewed and edited the documentation which was dictated to the scribe in my presence, and it accurately records my words and actions.
== END 2018-08-16 09:32 | disposition home or self-care (01) ==
LOC: ER 07:36
DX: M54.5 Low back pain (principal); M54.9 Dorsalgia, unspecified; G89.29 Other chronic pain; Z79.899 Other long term (current) drug therapy; F17.210 Nicotine dependence, cigarettes, uncomplicated
CPT/HCPCS: 99283

== ENCOUNTER 2018-08-17 20:47 | Emergency (ER) | payer MEDICAID, OTHER ==
[2018-08-17] MEDS ORDERED: NORMAL SALINE 1000 ML 1,000 ML IV ONE (22:49)
--- NOTE | 2018-08-17 22:52 | ER Document Report ---
ED Medical Screen (RME) - General Chief Complaint: Back Pain Stated Complaint: BACK PAIN,HEADACHE Time Seen by Provider: 08/17/18 22:49 Primary Care Provider: KOKI LOWRY MD [Primary Care Provider] - Follow up as needed Notes: 28-year-old male, chief complaint of feeling unsteady on his feet and also pain in his right upper back after he fell in the shower about 1 week ago or so. Denies difficulty breathing, passing out, states he had a headache earlier but it resolved. Admits that he works all day in the sun, drinks mostly soda. Past medical history of bipolar disorder, medicated. Denies recreational drugs, alcohol. He smokes. TRAVEL OUTSIDE OF THE [place] IN LAST 30 DAYS: No - Related Data Allergies/Adverse Reactions: No Known Allergies Allergy (Verified 08/17/18 20:50) Past Medical History - Social History Family history: Reviewed & Not Pertinent - Past Medical History Cardiac Medical History: Reports: Hx Hypercholesterolemia Endocrine Medical History: Denies: Hx Diabetes Mellitus Type 1, Hx Diabetes Mellitus Type 2 Renal/ Medical History: Denies: Hx Peritoneal Dialysis GI Medical History: Reports: Hx Gastroesophageal Reflux Disease Psychiatric Medical History: Reports: Hx Attention Deficit Hyperactivity Disorder, Hx Bipolar Disorder Past Surgical History: Reports: Hx Oral Surgery - Immunizations Hx Diphtheria, Pertussis, Tetanus Vaccination: Yes Physical Exam - Vital signs Vitals: Temp Pulse Resp BP Pulse Ox 97.4 F 66 20 114/77 100 08/17/18 21:33 08/17/18 21:33 08/17/18 21:33 08/17/18 21:33 08/17/18 21:33 - Respiratory Respiratory status: No respiratory distress Chest status: Tender - Mildly tender in the mid upper back on the right side Breath sounds: Normal - Neurological Cognition: Normal Orientation: AAOx4 [place] Coma Scale Eye Opening: Spontaneous [place] Coma Scale Verbal: Oriented [place] Coma Scale Motor: Obeys Commands [place] Coma Scale Total: 15 Speech: Normal Cranial nerves: Normal Cerebellar coordination: Other - Very minimal unsteadiness on his feet. Patient can still ambulate Course - Re-evaluation Re-evalutation: Patient slightly unsteady on his feet, otherwise evaluation is unremarkable - Vital Signs Vital signs: Temp Pulse Resp BP Pulse Ox 97.4 F 66 20 114/77 100 08/17/18 21:33 08/17/18 21:33 08/17/18 21:33 08/17/18 21:33 08/17/18 21:33 Doctor's Discharge - Discharge Referrals: KOKI LOWRY MD [Primary Care Provider] - Follow up as needed
--- NOTE | 2018-08-17 23:24 | RADIOLOGY REPORT (SQ) ---
CLINICAL HISTORY: fall, right upper back/rib pain COMPARISON: None. TECHNIQUE: XR RIBS UNILATERAL WITH CHEST 08/17/2018 10:51 PM CDT FINDINGS: Cardiac silhouette is normal in size. Lungs are clear without consolidation, atelectasis, mass or edema. There is no pleural effusion. There is no pneumothorax. There are no acute osseous findings. IMPRESSION: Clear lungs.
[2018-08-17 23:56] LABS: ABSOLUTE BASOPHILS # (AUTO) 0.1 10^3/uL (0.0-0.2); ABSOLUTE EOSINOPHILS # (AUTO) 0.3 10^3/uL (0.0-0.6); ABSOLUTE LYMPHOCYTES (AUTO) 2.3 10^3/uL (0.5-4.7); ABSOLUTE MONOCYTES (AUTO) 0.3 10^3/uL (0.1-1.4); ABSOLUTE NEUT (AUTO) 2.4 10^3/uL (1.7-8.2); BASOPHILS % (AUTO) 1.2 % (0-2); EOSINOPHILS % (AUTO) 4.8 % (0-6); HEMATOCRIT 46.9 % (37.9-51.0); HEMOGLOBIN 15.7 g/dL (13.5-17.0); LYMPHOCYTES % (AUTO) 43.3 % (13-45); MEAN CORPUSCULAR HEMOGLOBIN 29.9 pg (27.0-33.4); MEAN CORPUSCULAR HGB CONC 33.4 g/dL (32.0-36.0); MEAN CORPUSCULAR VOLUME 89 fl (80-97); MONOCYTES % (AUTO) 5.9 % (3-13); PLATELET COUNT 250 10^3/uL (150-450); RED BLOOD COUNT 5.24 10^6/uL (4.35-5.55); RED CELL DISTRIBUTION WIDTH 13.2 % (11.5-14.0); SEGMENTED NEUTROPHILS % (AUTO) 44.8 % (42-78); TOTAL CELLS COUNTED % (AUTO) 100 %; WHITE BLOOD COUNT 5.4 10^3/uL (4.0-10.5)
[2018-08-18 00:01] LABS: APPEARANCE,URINE SLIGHTLY-CLOUDY; BILIRUBIN,URINE SMALL (NEGATIVE); COLOR,URINE AMBER; GLUCOSE, URINE NEGATIVE (NEGATIVE); KETONES,URINE TRACE mg/dL (NEGATIVE); LEUKOCYTE ESTERASE,URINE NEGATIVE (NEGATIVE); NITRITE,URINE NEGATIVE (NEGATIVE); PROTEIN,URINE 100 mg/dL (NEGATIVE); URINE SPECIFIC GRAVITY 1.031
[2018-08-18 00:26] LABS: ANION GAP 8 (5-19); BLOOD UREA NITROGEN 10 mg/dL (7-20); CALCIUM 10.6 mg/dL (8.4-10.2); CARBON DIOXIDE 31 mmol/L (22-30); CHLORIDE 107 mmol/L (98-107); CREATINE KINASE 1084 U/L (55-170); GLUCOSE 107 mg/dL (75-110); POTASSIUM 4.1 mmol/L (3.6-5.0); SODIUM 146.1 mmol/L (137-145)
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
[2018-08-18] MEDS: NORMAL SALINE 1000 ML 1,000 ML IV PRN ×2 (07:56→08:46)
[2018-08-18 09:54] LABS: ABSOLUTE BASOPHILS # (AUTO) 0.1 10^3/uL (0.0-0.2); ABSOLUTE EOSINOPHILS # (AUTO) 0.3 10^3/uL (0.0-0.6); ABSOLUTE LYMPHOCYTES (AUTO) 1.8 10^3/uL (0.5-4.7); ABSOLUTE MONOCYTES (AUTO) 0.3 10^3/uL (0.1-1.4); ABSOLUTE NEUT (AUTO) 1.2 10^3/uL (1.7-8.2); BASOPHILS % (AUTO) 2.4 % (0-2); EOSINOPHILS % (AUTO) 7.1 % (0-6); HEMATOCRIT 41.3 % (37.9-51.0); HEMOGLOBIN 13.9 g/dL (13.5-17.0); LYMPHOCYTES % (AUTO) 49.6 % (13-45); MEAN CORPUSCULAR HEMOGLOBIN 30.2 pg (27.0-33.4); MEAN CORPUSCULAR HGB CONC 33.7 g/dL (32.0-36.0); MEAN CORPUSCULAR VOLUME 90 fl (80-97); MONOCYTES % (AUTO) 8.1 % (3-13); PLATELET COUNT 214 10^3/uL (150-450); RED CELL DISTRIBUTION WIDTH 13.7 % (11.5-14.0); SEGMENTED NEUTROPHILS % (AUTO) 32.8 % (42-78); TOTAL CELLS COUNTED % (AUTO) 100 %; WHITE BLOOD COUNT 3.7 10^3/uL (4.0-10.5)
[2018-08-18 10:15] LABS: ALANINE AMINOTRANSFERASE 43 U/L (21-72); ALBUMIN 3.5 g/dL (3.5-5.0); ALKALINE PHOSPHATASE 60 U/L (38-126); ANION GAP 5 (5-19); ASPARTATE AMINO TRANSFERASE 39 U/L (17-59); BILIRUBIN,DIRECT 0.2 mg/dL (0.0-0.4); BILIRUBIN,TOTAL 0.4 mg/dL (0.2-1.3); BLOOD UREA NITROGEN 11 mg/dL (7-20); CALCIUM 9.2 mg/dL (8.4-10.2); CARBON DIOXIDE 28 mmol/L (22-30); CHLORIDE 113 mmol/L (98-107); CREATINE KINASE 597 U/L (55-170); GLUCOSE 89 mg/dL (75-110); POTASSIUM 4.5 mmol/L (3.6-5.0); SODIUM 146.1 mmol/L (137-145); TOTAL PROTEIN 5.9 g/dL (6.3-8.2)
[2018-08-18 11:40] VITALS: BP 114/70
== END 2018-08-18 11:00 | disposition home or self-care (01) ==
LOC: ER 20:47
DX: S46.911A Strain of unspecified muscle, fascia and tendon at shoulder and upper arm level, right arm, initial encounter (principal); M62.82 Rhabdomyolysis; F31.70 Bipolar disorder, currently in remission, most recent episode unspecified; M54.9 Dorsalgia, unspecified; G89.29 Other chronic pain; R51 Headache; Z59.0 Homelessness; W18.2XXA Fall in (into) shower or empty bathtub, initial encounter; F17.200 Nicotine dependence, unspecified, uncomplicated
CPT/HCPCS: 99283; 96360; 96361; 36415; 82550; 85025; 80048; 80053; 81001; 71101; J7030 ×2

== ENCOUNTER 2018-08-19 03:16 | Emergency (ER) | payer MEDICAID ==
[2018-08-19 04:00] VITALS: BP 112/60
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
[2018-08-19] MEDS ORDERED: ACETAMINOPHEN 325 MG TABLET PO ONE (06:00)
== END 2018-08-19 06:01 | disposition home or self-care (01) ==
LOC: ER 03:16
DX: S02.401A Maxillary fracture, unspecified side, initial encounter for closed fracture (principal); R04.0 Epistaxis; R20.0 Anesthesia of skin; R68.84 Jaw pain; Y04.0XXA Assault by unarmed brawl or fight, initial encounter
CPT/HCPCS: 99284; 70486; J3490

== ENCOUNTER 2018-10-22 19:31 | Emergency (ER) | payer MEDICAID, OTHER ==
[2018-10-22] MEDS ORDERED: ACETAMINOPHEN 325 MG TABLET PO ONE (20:34)
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
[2018-10-22 20:56] LABS: ABSOLUTE BASOPHILS # (AUTO) 0.1 10^3/uL (0.0-0.2); ABSOLUTE EOSINOPHILS # (AUTO) 0.1 10^3/uL (0.0-0.6); ABSOLUTE LYMPHOCYTES (AUTO) 2.8 10^3/uL (0.5-4.7); ABSOLUTE MONOCYTES (AUTO) 0.6 10^3/uL (0.1-1.4); ABSOLUTE NEUT (AUTO) 5.6 10^3/uL (1.7-8.2); BASOPHILS % (AUTO) 1.3 % (0-2); EOSINOPHILS % (AUTO) 1.5 % (0-6); HEMATOCRIT 44.5 % (37.9-51.0); HEMOGLOBIN 15.1 g/dL (13.5-17.0); LYMPHOCYTES % (AUTO) 30.4 % (13-45); MEAN CORPUSCULAR HEMOGLOBIN 30.3 pg (27.0-33.4); MEAN CORPUSCULAR HGB CONC 33.9 g/dL (32.0-36.0); MEAN CORPUSCULAR VOLUME 89 fl (80-97); MONOCYTES % (AUTO) 6.9 % (3-13); PLATELET COUNT 356 10^3/uL (150-450); RED BLOOD COUNT 4.97 10^6/uL (4.35-5.55); RED CELL DISTRIBUTION WIDTH 13.9 % (11.5-14.0); SEGMENTED NEUTROPHILS % (AUTO) 59.9 % (42-78); TOTAL CELLS COUNTED % (AUTO) 100 %; WHITE BLOOD COUNT 9.4 10^3/uL (4.0-10.5)
[2018-10-22 21:00] LABS: APPEARANCE,URINE CLEAR; BILIRUBIN,URINE NEGATIVE (NEGATIVE); COLOR,URINE YELLOW; GLUCOSE, URINE NEGATIVE (NEGATIVE); KETONES,URINE NEGATIVE (NEGATIVE); LEUKOCYTE ESTERASE,URINE NEGATIVE (NEGATIVE); NITRITE,URINE NEGATIVE (NEGATIVE); PROTEIN,URINE NEGATIVE (NEGATIVE); URINE SPECIFIC GRAVITY 1.021; UROBILINOGEN,URINE NEGATIVE mg/dL (<2.0)
[2018-10-22 21:15] LABS: ALANINE AMINOTRANSFERASE 42 U/L (21-72); ALKALINE PHOSPHATASE 83 U/L (38-126); ANION GAP 12 (5-19); ASPARTATE AMINO TRANSFERASE 66 U/L (17-59); BILIRUBIN,DIRECT 0.3 mg/dL (0.0-0.4); BILIRUBIN,TOTAL 0.6 mg/dL (0.2-1.3); BLOOD UREA NITROGEN 9 mg/dL (7-20); CALCIUM 10.4 mg/dL (8.4-10.2); CARBON DIOXIDE 27 mmol/L (22-30); CHLORIDE 103 mmol/L (98-107); GLUCOSE 94 mg/dL (75-110); POTASSIUM 4.1 mmol/L (3.6-5.0); TOTAL PROTEIN 8.1 g/dL (6.3-8.2)
[2018-10-22 21:16] LABS: ACETAMINOPHEN < 10 ug/mL (10-30); ALCOHOL < 10 mg/dL (NONE DETECTED); SALICYLATE < 1.0 mg/dL (2.0-20.0)
[2018-10-22 21:18] LABS: URINE AMPHETAMINES SCREEN NEGATIVE; URINE BARBITURATES SCREEN NEGATIVE; URINE BENZODIAZEPINES SCREEN NEGATIVE; URINE COCAINE SCREEN NEGATIVE; URINE MARIJUANA (THC) SCREEN NEGATIVE; URINE METHADONE SCREEN NEGATIVE; URINE PHENCYCLIDINE SCREEN NEGATIVE
--- NOTE | 2018-10-22 21:51 | EKG REPORT ---
SEVERITY:- NORMAL ECG - SINUS RHYTHM : Confirmed by: Ronald Mai 22-Oct-2018 21:51:02
--- NOTE | 2018-10-22 22:18 | ER Document Report ---
Addendum entered and electronically signed by MAHESH HOWE MD 10/23/18 12:48: Discharge - Discharge Clinical Impression: Auditory hallucinations, Visual hallucinations, Myalgia, History of bipolar disorder, Has run out of medications, Homelessness Condition: Stable Disposition: HOME, SELF-CARE Additional Instructions: You have been evaluated by both medical and behavioral health providers while in the emergency department. You have been cleared from both acute medical and psychiatric services. You are being provided with a prescription to manage your Bipolar and Schizophrenia symptoms such as hallucinations. You should take these as directed and follow up with an outpatient mental health provider. You were provided a local resource sheet. You were previously linked to the local homeless jail and should continue to utilize them for temporary housing. Hallucinations You seem to be having hallucinations. Hallucinations are seeing, hearing, or feeling things that don't exist. These symptoms commonly occur with drug abuse and schizophrenia. Drugs like PCP, LSD, MDMA, peyote, and "psychedelic mushrooms" can cause frightening hallucinations. Users of methamphetamine or crack cocaine often see and feel bugs crawling on their skin. Patients with schizophrenia may hear voices that no one else can hear. The delusions of schizophrenia often involve conspiracies or relationships that are not real. When symptoms are due to drug abuse, the mental state usually improves as the drug wears off. Someone you trust should be with you until you are better, to protect you and calm your fears. Tranquilizer medicine is helpful at controlling hallucinations, anxiety, and deluded thoughts. Get a proper diet and enough sleep. Most patients do very well when they get proper medical treatment and social support. You should return at once if your symptoms get worse, if you are having suicidal thoughts or thoughts about hurting others, or if you feel that you are in danger. Bipolar Disorder Bipolar disorder is also called manic-depressive disorder. Depression alternates with brain hyperactivity called waldemar. Each phase lasts from several days to a few weeks. We don't know exactly what causes bipolar disorder, but it's treatable. During the "manic phase," you may feel elated and energetic. You may have racing thoughts, rapid speech, increased activity, and grandiose ideas. During this time, you may not realize how poor your judgement is. Inappropriate spending, drug abuse, excessive alcohol use, marriage problems, and irresponsible sexual behavior are common during the manic phase. During the "depressive phase," you might feel depressed, guilty, worthless, fatigued, and unable to concentrate. You might have thoughts of suicide. Good treatments are available for bipolar disorder. [place] is a classic drug for bipolar disorder, and is still often useful. If the manic phase is very mild, an antidepressant alone can be prescribed. If the manic phase is very severe, an antipsychotic medicine (such as Haldol) may be needed. The treatment must be matched to your symptoms, so it's important to work closely with your psychiatric care provider. Contact your physician, the hospital emergency center, crisis line, or your counsellor if you are losing control or having self-destructive thoughts. Follow-Up Plan: You are being provided a prescription for Zyprexa 2.5MG twice a day for psychosis/mood stabilization/impulse control. You should take this medication as prescribed. You have been given information on the [employer] application/website for affordable medications which is typically [employer]. You have been provided the outpatient mental health resource sheet which lists local providers. You are recommended to follow up with previous provider [facility] ([facility]) or [facility] (you mentioned you lost Medicaid they will see self pay). You have also been provided the [facility] Mobile Crisis number for crisis, therapy and linkage to other services/supports. You have been linked with the local homeless jail previously and were instructed to utilize them for temporary housing. If your symptoms persist or worsen contact your physician immediately, utilize mobile crisis or return to the emergency department. Prescriptions: Olanzapine [Zyprexa 2.5 Mg Tablet] 2.5 mg PO BID #28 tablet Referrals: [facility] [Outside] - Follow up as needed [facility] [Outside] - Follow up as needed [facility] [Outside] - Follow up as needed KOKI LOWRY MD [NO LOCAL MD] - Follow up as needed Addendum entered and electronically signed by RUDDY RESENDEZ LPC 10/23/18 12:45: Discharge - Discharge Clinical Impression: Auditory hallucinations, Visual hallucinations, Myalgia, History of bipolar disorder, Has run out of medications, Homelessness Condition: Stable Disposition: HOME, SELF-CARE Additional Instructions: You have been evaluated by both medical and behavioral health providers while in the emergency department. You have been cleared from both acute medical and psychiatric services. You are being provided with a prescription to manage your Bipolar and Schizophrenia symptoms such as hallucinations. You should take these as directed and follow up with an outpatient mental health provider. You were provided a local resource sheet. You were previously linked to the local homeless jail and should continue to utilize them for temporary housing. Hallucinations You seem to be having hallucinations. Hallucinations are seeing, hearing, or feeling things that don't exist. These symptoms commonly occur with drug abuse and schizophrenia. Drugs like PCP, LSD, MDMA, peyote, and "psychedelic mushrooms" can cause frightening hallucinations. Users of methamphetamine or crack cocaine often see and feel bugs crawling on their skin. Patients with schizophrenia may hear voices that no one else can hear. The delusions of schizophrenia often involve conspiracies or relationships that are not real. When symptoms are due to drug abuse, the mental state usually improves as the drug wears off. Someone you trust should be with you until you are better, to protect you and calm your fears. Tranquilizer medicine is helpful at controlling hallucinations, anxiety, a nd deluded thoughts. Get a proper diet and enough sleep. Most patients do very well when they get proper medical treatment and social support. You should return at once if your symptoms get worse, if you are having suicidal thoughts or thoughts about hurting others, or if you feel that you are in danger. Bipolar Disorder Bipolar disorder is also called manic-depressive disorder. Depression alternates with brain hyperactivity called waldemar. Each phase lasts from several days to a few weeks. We don't know exactly what causes bipolar disorder, but it's treatable. During the "manic phase," you may feel elated and energetic. You may have racing thoughts, rapid speech, increased activity, and grandiose ideas. During this time, you may not realize how poor your judgement is. Inappropriate spending, drug abuse, excessive alcohol use, marriage problems, and irresponsible sexual behavior are common during the manic phase. During the "depressive phase," you might feel depressed, guilty, worthless, fatigued, and unable to concentrate. You might have thoughts of suicide. Good treatments are available for bipolar disorder. [place] is a classic drug for bipolar disorder, and is still often useful. If the manic phase is very mild, an antidepressant alone can be prescribed. If the manic phase is very severe, an antipsychotic medicine (such as Haldol) may be needed. The treatment must be matched to your symptoms, so it's important to work closely with your psychiatric care provider. Contact your physician, the hospital emergency center, crisis line, or your counsellor if you are losing control or having self-destructive thoughts. Follow-Up Plan: You are being provided a prescription for Zyprexa 2.5MG twice a day for psychosis/mood stabilization/impulse control. You should take this medication as prescribed. You have been given information on the [employer] application/website for affordable medications which is typically [employer]. You have been provided the outpatient mental health resource sheet which lists local providers. You are recommended to follow up with previous provider [facility] ([facility]) or [facility] (you mentioned you lost Medicaid they will see self pay). You have also been provided the [facility] Mobile Crisis number for crisis, therapy and link age to other services/supports. You have been linked with the local homeless jail previously and were instructed to utilize them for temporary housing. If your symptoms persist or worsen contact your physician immediately, utilize mobile crisis or return to the emergency department. Prescriptions: Olanzapine [Zyprexa 2.5 Mg Tablet] 2.5 mg PO BID #28 tablet Referrals: KOKI LOWRY MD [NO LOCAL MD] - Follow up as needed [facility] [Outside] - Follow up as needed [facility] [Outside] - Follow up as needed [facility] [Outside] - Follow up as needed Addendum entered and electronically signed by MAHESH HOWE MD 10/23/18 12:18: Discharge - Discharge Clinical Impression: Auditory hallucinations, Visual hallucinations, Myalgia Condition: Stable Disposition: PSYCH HOSP/UNIT Prescriptions: Olanzapine [Zyprexa 2.5 Mg Tablet] 2.5 mg PO BID #28 tablet Referrals: KOKI LOWRY MD [NO LOCAL MD] - Follow up as needed Addendum entered and electronically signed by MARY KUMAR DO 10/22/18 22:18: Course - Vital Signs Vital signs: Temp Pulse Resp BP Pulse Ox 98.2 F 95 18 126/73 H 92 10/22/18 19:35 10/22/18 19:35 10/22/18 19:35 10/22/18 19:35 10/22/18 19:35 - Laboratory Result Diagrams: 10/22/18 20:40 10/22/18 20:40 Laboratory results interpreted by me: 10/22/18 20:40 Calcium 10.4 H AST 66 H Salicylates < 1.0 L Acetaminophen < 10 L - EKG Interpretation by Me Additional EKG results interpreted by me: 10/22/18 22:18 Interpreted by myself [id number]: Normal sinus rhythm, rate 60, normal axis, no ectopy, no QT prolongation, no STEMI Original Note: ED General - General Chief Complaint: Dizziness Stated Complaint: DIZZINESS,LEG CRAMPS Time Seen by Provider: 10/22/18 20:20 Primary Care Provider: KOKI LOWRY MD [NO LOCAL MD] - Follow up as needed TRAVEL OUTSIDE OF THE [place] IN LAST 30 DAYS: No - HPI Notes: Patient is a 28-year-old male that presents to the emergency department for chief complaint of muscle cramps. Patient reports currently being homeless. He states that he has had some cramping in his muscles over the last few days. He denies taking any medicine for the symptoms. He did receive Tylenol in triage and reports feeling much better. Patient has a history of schizophrenia and is off his medication. He states he has not had any medicine since December because "I do not know what it will do to me". Patient does endorse auditory visual hallucinations. He states he is seeing his arm hair is turned yellow, red and black. He is hearing voices but they are not seeing any detrimental things to him. He denies any current homicidal or suicidal ideations. Patient states he came back into town recently hoping to get back on medication and to get glasses. Past Medical History: Schizophrenia Past Surgical History: Reviewed in chart Social History: Denies drugs alcohol and tobacco Family History: Reviewed and noncontributory for presenting illness Allergies: Reviewed, see documented allergy list. REVIEW OF SYSTEMS: CONSTITUTIONAL : No fever No chills No diaphoresis No recent illness EENT: No vision changes No congestion No sore throat CARDIOVASCULAR: No chest pain No palpitations RESPIRATORY: No shortness of breath No cough No difficulty breathing GASTROINTESTINAL: No abdominal pain No nausea No vomiting No diarrhea GENITOURINARY: No dysuria No hematuria No difficulty urinating MUSCULOSKELETAL: No back pain leg pain arm pain SKIN: No rashes No lesions LYMPHATIC: No swollen, enlarged glands. NEUROLOGICAL: No lightheadedness No headache No weakness No paresthesias PSYCHIATRIC: No anxiety No depression Auditory and visual hallucinations PHYSICAL EXAMINATION: Vital signs reviewed, nursing noted reviewed. GENERAL: Disheveled, well-nourished and in no acute distress. HEAD: Atraumatic, normocephalic. EYES: Eyes appear normal, extraocular movements intact, sclera anicteric, conjunctiva are normal. ENT: nares patent, oropharynx clear without exudates. Moist mucous membranes. NECK: Normal range of motion, supple without lymphadenopathy LUNGS: Breath sounds clear to auscultation bilaterally and equal. No wheezes rales or rhonchi. HEART: Regular rate and rhythm without murmurs ABDOMEN: Soft, nontender, normoactive bowel sounds. No rebound, guarding, or rigidity. No masses appreciated. EXTREMITIES: Nontender, good range of motion, no pitting or edema. NEUROLOGICAL: No focal neurological deficits. Moves all extremities spontaneously Motor and sensory grossly intact on exam. PSYCH: Normal mood, flat affect. Appears to be having visual hallucinations SKIN: Warm, Dry, normal turgor, no rashes or lesions noted on exposed skin - Related Data Allergies/Adverse Reactions: haloperidol [From Haldol] Allergy (Verified 10/22/18 20:31) Past Medical History - Social History Smoking Status: Current Every Day Smoker Chew tobacco use (# tins/day): Yes Frequency of alcohol use: None Family History: Reviewed & Not Pertinent Patient has suicidal ideation: No Patient has homicidal ideation: No - Past Medical History Cardiac Medical History: Reports: Hx Hypercholesterolemia Endocrine Medical History: Denies: Hx Diabetes Mellitus Type 1, Hx Diabetes Mellitus Type 2 Renal/ Medical History: Denies: Hx Peritoneal Dialysis GI Medical History: Reports: Hx Gastroesophageal Reflux Disease Psychiatric Medical History: Reports: Hx Attention Deficit Hyperactivity Disorder, Hx Bipolar Disorder Past Surgical History: Reports: Hx Oral Surgery - Immunizations Hx Diphtheria, Pertussis, Tetanus Vaccination: Yes Physical Exam - Vital signs Vitals: Temp Pulse Resp BP Pulse Ox 98.2 F 95 18 126/73 H 92 10/22/18 19:35 10/22/18 19:35 10/22/18 19:35 10/22/18 19:35 10/22/18 19:35 Course - Re-evaluation Re-evalutation: 10/22/18 22:16 Vitals reviewed. Nursing notes reviewed. Patient appears well-hydrated and is in no acute distress. His lab work shows no severe electrolyte derangement or renal insufficiency. He has no signs of acute infection. Patient is not homicidal or suicidal. He is disheveled and currently homeless. Patient does appear to be having auditory and visual hallucination. He expresses a desire to get back on medication for schizophrenia. He has seen [facility] in the past. He does not know what medications he used to be taking. Patient would like to speak with the counseling team who will return in the morning. At this point he is not meeting IVC criteria and is free to leave the emergency room if he does not wish to have any further psychiatric evaluation since he is not suicidal or homicidal and does have comprehension of his current situation. Patient will remain in the emergency room to see psych in the morning to try and get back on medications. He is medically cleared. Laboratory 10/22/18 10/22/18 10/22/18 20:35 20:35 20:40 WBC 9.4 RBC 4.97 Hgb 15.1 Hct 44.5 MCV 89 MCH 30.3 MCHC 33.9 RDW 13.9 Plt Count 356 Seg Neutrophils % 59.9 Lymphocytes % 30.4 Monocytes % 6.9 Eosinophils % 1.5 Basophils % 1.3 Absolute Neutrophils 5.6 Absolute Lymphocytes 2.8 Absolute Monocytes 0.6 Absolute Eosinophils 0.1 Absolute Basophils 0.1 Sodium Potassium Chloride Carbon Dioxide Anion Gap BUN Creatinine Est GFR ( Amer) Est GFR (Non-Af Amer) Glucose Calcium Total Bilirubin Direct Bilirubin Neonat Total Bilirubin Neonat Direct Bilirubin Neonat Indirect Bili AST ALT Alkaline Phosphatase Total Protein Albumin Urine Color YELLOW Urine Appearance CLEAR Urine pH 5.0 Ur Specific [place] 1.021 Urine Protein NEGATIVE Urine Glucose (UA) NEGATIVE Urine Ketones NEGATIVE Urine Blood NEGATIVE Urine Nitrite NEGATIVE Urine Bilirubin NEGATIVE Urine Urobilinogen NEGATIVE Ur Leukocyte Esterase NEGATIVE Urine WBC (Auto) 1 Urine RBC (Auto) 1 Urine Mucus (Auto) FEW Urine Ascorbic Acid NEGATIVE Salicylates Urine Opiates Screen NEGATIVE Urine Methadone Screen NEGATIVE Acetaminophen Ur Barbiturates Screen NEGATIVE Ur Phencyclidine Scrn NEGATIVE Ur Amphetamines Screen NEGATIVE U Benzodiazepines Scrn NEGATIVE Urine Cocaine Screen NEGATIVE U Marijuana (THC) Screen NEGATIVE Serum Alcohol 10/22/18 20:40 WBC RBC Hgb Hct MCV MCH MCHC RDW Plt Count Seg Neutrophils % Lymphocytes % Monocytes % Eosinophils % Basophils % Absolute Neutrophils Absolute Lymphocytes Absolute Monocytes Absolute Eosinophils Absolute Basophils Sodium 141.9 Potassium 4.1 Chloride 103 Carbon Dioxide 27 Anion Gap 12 BUN 9 Creatinine 0.89 Est GFR ( Amer) > 60 Est GFR (Non-Af Amer) > 60 Glucose 94 Calcium 10.4 H Total Bilirubin 0.6 Direct Bilirubin 0.3 Neonat Total Bilirubin Not Reportable Neonat Direct Bilirubin Not Reportable Neonat Indirect Bili Not Reportable AST 66 H ALT 42 Alkaline Phosphatase 83 Total Protein 8.1 Albumin 5.0 Urine Color Urine Appearance Urine pH Ur Specific [place] Urine Protein Urine Glucose (UA) Urine Ketones Urine Blood Urine Nitrite Urine Bilirubin Urine Urobilinogen Ur Leukocyte Esterase Urine WBC (Auto) Urine RBC (Auto) Urine Mucus (Auto) Urine Ascorbic Acid Salicylates < 1.0 L Urine Opiates Screen Urine Methadone Screen Acetaminophen < 10 L Ur Barbiturates Screen Ur Phencyclidine Scrn Ur Amphetamines Screen U Benzodiazepines Scrn Urine Cocaine Screen U Marijuana (THC) Screen Serum Alcohol < 10 - Vital Signs Vital signs: Temp Pulse Resp BP Pulse Ox 98.2 F 95 18 126/73 H 92 10/22/18 19:35 10/22/18 19:35 10/22/18 19:35 10/22/18 19:35 10/22/18 19:35 - Laboratory Result Diagrams: 10/22/18 20:40 10/22/18 20:40 Laboratory results interpreted by me: 10/22/18 20:40 Calcium 10.4 H AST 66 H Salicylates < 1.0 L Acetaminophen < 10 L Discharge - Discharge Clinical Impression: Auditory hallucinations, Visual hallucinations, Myalgia Condition: Stable Disposition: PSYCH HOSP/UNIT Referrals: KOKI LOWRY MD [NO LOCAL MD] - Follow up as needed
[2018-10-23] MEDS ORDERED: OLANZAPINE 2.5 MG TABLET PO ONE (12:18)
[2018-10-23 13:11] VITALS: BP 122/106
== END 2018-10-23 13:10 | disposition home or self-care (01) ==
LOC: ER 19:31
DX: R44.0 Auditory hallucinations (principal); R44.1 Visual hallucinations; R25.2 Cramp and spasm; R42 Dizziness and giddiness; F17.220 Nicotine dependence, chewing tobacco, uncomplicated; E78.00 Pure hypercholesterolemia, unspecified; Z59.0 Homelessness
CPT/HCPCS: 93005; 99284; 36415; 80307 ×4; 85025; 80053; 81001; 93010; J3490 ×2

== ENCOUNTER 2018-11-03 23:43 | Emergency (ER) | payer MEDICAID ==
[2018-11-04 00:12] VITALS: BP 108/62
[2018-11-04] MEDS ORDERED: FLUCONAZOLE 100 MG TABLET PO ONE (05:52)
--- NOTE | 2018-11-04 06:07 | ER Document Report ---
HPI - HPI Time Seen by Provider: 11/04/18 05:41 Pain Level: 4 Context: Patient is a 28-year-old male that comes to the emergency department for chief complaint of blister on the bottom of his foot. He states he had one on the right, this resolved, now he has one on the left. He states this is from walking constantly. He states he just wants it checked because the skin was cracked. He states it hurts some but he does not have any difficulty walking. He states he is homeless. He is diagnosed with schizophrenia. He denies hearing voices, hallucinations, suicidal ideations or homicidal ideations. He is not currently on any medications. - REPRODUCTIVE Reproductive: DENIES: : - DERM Skin Color: Normal Past Medical History - General Information source: Patient - Social History Smoking Status: Current Some Day Smoker Frequency of alcohol use: None Lives with: Alone Family History: Reviewed & Not Pertinent Patient has suicidal ideation: No Patient has homicidal ideation: No - Past Medical History Cardiac Medical History: Reports: Hx Hypercholesterolemia Endocrine Medical History: Denies: Hx Diabetes Mellitus Type 1, Hx Diabetes Mellitus Type 2 Renal/ Medical History: Denies: Hx Peritoneal Dialysis GI Medical History: Reports: Hx Gastroesophageal Reflux Disease Psychiatric Medical History: Reports: Hx Attention Deficit Hyperactivity Disorder, Hx Bipolar Disorder Past Surgical History: Reports: Hx Oral Surgery - Immunizations Hx Diphtheria, Pertussis, Tetanus Vaccination: Yes Vertical Provider Document - CONSTITUTIONAL General Appearance: WD/WN, No Apparent Distress - INFECTION CONTROL TRAVEL OUTSIDE OF THE [place] IN LAST 30 DAYS: No - HEENT HEENT: Atraumatic, Normal ENT Exam, Normocephalic - NECK Neck: Normal Inspection - RESPIRATORY Respiratory: Breath Sounds Normal, No Respiratory Distress - CARDIOVASCULAR Cardiovascular: Regular Rate, Regular Rhythm - GI/ABDOMEN Gastrointestinal: Abdomen Soft, Abdomen Non-Tender - BACK Back: Normal Inspection - MUSCULOSKELETAL/EXTREMETIES Musculoskeletal/Extremeties: MAEW, FROM, Non-Tender - NEURO Level of Consciousness: Awake, Alert, Appropriate Motor/Sensory: No Motor Deficit, No Sensory Deficit - DERM Integumentary: Warm, Dry. negative: Laceration - There is a callus with a small blister underneath the left foot, there is a small crack of skin with a scab that is healing, there is no surrounding erythema, no significant tenderness, no induration or fluctuance. Normal foot exam otherwise except there is evidence of some erythema suggesting fungus in between the toes. Course - Re-evaluation Re-evalutation: Patient is calm and cooperative. He does have a blister on the bottom of his foot which is not infected, there is some nearby fungus noted at the toes unfortunately, he was given Diflucan for this. Discussed better hygiene. Patient actually has reasonably good idea otherwise. He was provided with wound care supplies as well on request. Because there is no infection otherwise, there does not appear to be the need for antibiotics. I discussed monitoring and return precautions for the area. He ambulates on the area without any difficulty. From a psychiatric standpoint patient is actually quite oriented, and not bizarre, and he declines any assistance in regards to case management, discharge planning, home placement. He states that he does not want to go to a half-way. He states that he does have some money, he states that he is almost in the position to find a local job, he states he will return if something is not right. Vital signs unremarkable. Stable time of discharge. - Vital Signs Vital signs: Temp Pulse Resp BP Pulse Ox 98.1 F 97 16 108/62 100 11/04/18 00:10 11/04/18 00:10 11/04/18 00:10 11/04/18 00:10 11/04/18 00:10 Discharge - Discharge Clinical Impression: Foot pain, left, Blister Condition: Stable Disposition: HOME, SELF-CARE Additional Instructions: There is a blister on the foot, however this does not appear to be infected. You have been treated to clear the fungus, I recommend that you keep an antibiotic dressing and keep the area clean so it does not become infected. I recommend you keep off of your foot as much as possible over the next several d ays while this heals. Follow-up with both the primary care referral ([facility]) and the mental health services ([facility]). Return if you worsen including developing swelling, redness, pain, discolored drainage, fever, or if something was not right. Referrals: [facility] [Provider Group] - Follow up as needed [facility] [Provider Group] - Follow up as needed
== END 2018-11-04 06:15 | disposition home or self-care (01) ==
LOC: ER 23:43
DX: S90.822A Blister (nonthermal), left foot, initial encounter (principal); X58.XXXA Exposure to other specified factors, initial encounter; L84 Corns and callosities; B49 Unspecified mycosis; F17.200 Nicotine dependence, unspecified, uncomplicated; Z59.0 Homelessness
CPT/HCPCS: 99283

== ENCOUNTER 2018-11-27 18:29 | Emergency (ER) | payer MEDICAID ==
--- NOTE | 2018-11-27 18:53 | ER Document Report ---
ED Medical Screen (RME) - General Chief Complaint: Palpitations Stated Complaint: CHEST PAIN Time Seen by Provider: 11/27/18 18:46 Notes: Patient is a 28-year-old male with a history of bipolar and schizophrenia who presents to the emergency department with a chief complaint of possible nicotine overdose. Patient states that throughout the day he has had 6 patches of the Longhorn Dip tobacco. Patient states he feels like he is having chest pain that is located on the left side and palpitations with shortness of breath. Patient states he has been off his psych medications for the past month. Patient reports he took himself off his own medications as he thought he was doing better. Patient concerned that he may have overdosed on nicotine. Patient reports that his body has been going through changes over the past 2 months. Patient denies drug use. Patient states he does not drink as he believes in God. TRAVEL OUTSIDE OF THE [place] IN LAST 30 DAYS: No - Related Data Allergies/Adverse Reactions: trazodone Allergy (Mild, Verified 11/27/18 18:30) haloperidol [From Haldol] Allergy (Verified 11/27/18 18:30) acetaminophen [From Tylenol] Adverse Reaction (Mild, Verified 11/27/18 18:30) Past Medical History - Social History Family history: Reviewed & Not Pertinent - Past Medical History Cardiac Medical History: Reports: Hx Hypercholesterolemia Endocrine Medical History: Denies: Hx Diabetes Mellitus Type 1, Hx Diabetes Me llitus Type 2 Renal/ Medical History: Denies: Hx Peritoneal Dialysis GI Medical History: Reports: Hx Gastroesophageal Reflux Disease Psychiatric Medical History: Reports: Hx Attention Deficit Hyperactivity Disorder, Hx Bipolar Disorder Past Surgical History: Reports: Hx Oral Surgery - Immunizations Hx Diphtheria, Pertussis, Tetanus Vaccination: Yes Physical Exam - Vital signs Vitals: Temp Pulse Resp BP Pulse Ox 98.3 F 100 16 132/70 H 98 11/27/18 18:42 11/27/18 18:42 11/27/18 18:42 11/27/18 18:42 11/27/18 18:42 Course - Re-evaluation Re-evalutation: 11/27/18 18:53 Patient rambling in triage. Patient keeps changing subjects frequently. Will obtain a psychiatric work-up. I have greeted and performed a rapid initial assessment of this patient. A comprehensive ED assessment and evaluation of the patient, analysis of test results and completion of the medical decision making process will be conducted by additional ED providers. - Vital Signs Vital signs: Temp Pulse Resp BP Pulse Ox 98.3 F 100 16 132/70 H 98 11/27/18 18:42 11/27/18 18:42 11/27/18 18:42 11/27/18 18:42 11/27/18 18:42
[2018-11-27 19:27] LABS: ABSOLUTE BASOPHILS # (AUTO) 0.1 10^3/uL (0.0-0.2); ABSOLUTE EOSINOPHILS # (AUTO) 0.2 10^3/uL (0.0-0.6); ABSOLUTE LYMPHOCYTES (AUTO) 2.3 10^3/uL (0.5-4.7); ABSOLUTE MONOCYTES (AUTO) 0.4 10^3/uL (0.1-1.4); ABSOLUTE NEUT (AUTO) 3.1 10^3/uL (1.7-8.2); BASOPHILS % (AUTO) 1.3 % (0-2); EOSINOPHILS % (AUTO) 3.9 % (0-6); HEMATOCRIT 43.3 % (37.9-51.0); HEMOGLOBIN 14.7 g/dL (13.5-17.0); LYMPHOCYTES % (AUTO) 38.1 % (13-45); MEAN CORPUSCULAR HEMOGLOBIN 30.8 pg (27.0-33.4); MEAN CORPUSCULAR VOLUME 91 fl (80-97); MONOCYTES % (AUTO) 5.8 % (3-13); PLATELET COUNT 274 10^3/uL (150-450); RED BLOOD COUNT 4.79 10^6/uL (4.35-5.55); RED CELL DISTRIBUTION WIDTH 14.3 % (11.5-14.0); SEGMENTED NEUTROPHILS % (AUTO) 50.9 % (42-78); TOTAL CELLS COUNTED % (AUTO) 100 %
[2018-11-27 19:29] LABS: APPEARANCE,URINE CLEAR; BILIRUBIN,URINE NEGATIVE (NEGATIVE); COLOR,URINE STRAW; GLUCOSE, URINE NEGATIVE (NEGATIVE); KETONES,URINE NEGATIVE (NEGATIVE); LEUKOCYTE ESTERASE,URINE NEGATIVE (NEGATIVE); NITRITE,URINE NEGATIVE (NEGATIVE); PROTEIN,URINE NEGATIVE (NEGATIVE); UROBILINOGEN,URINE NEGATIVE mg/dL (<2.0)
[2018-11-27 19:45] LABS: URINE AMPHETAMINES SCREEN NEGATIVE; URINE BARBITURATES SCREEN NEGATIVE; URINE BENZODIAZEPINES SCREEN NEGATIVE; URINE COCAINE SCREEN NEGATIVE; URINE MARIJUANA (THC) SCREEN NEGATIVE; URINE METHADONE SCREEN NEGATIVE; URINE PHENCYCLIDINE SCREEN NEGATIVE
[2018-11-27 19:51] LABS: ALBUMIN 4.5 g/dL (3.5-5.0); ALKALINE PHOSPHATASE 63 U/L (38-126); ANION GAP 8 (5-19); ASPARTATE AMINO TRANSFERASE 25 U/L (17-59); BILIRUBIN,DIRECT 0.3 mg/dL (0.0-0.4); BILIRUBIN,TOTAL 0.4 mg/dL (0.2-1.3); BLOOD UREA NITROGEN 12 mg/dL (7-20); CALCIUM 10.2 mg/dL (8.4-10.2); CARBON DIOXIDE 29 mmol/L (22-30); CHLORIDE 105 mmol/L (98-107); GLUCOSE 94 mg/dL (75-110); POTASSIUM 4.2 mmol/L (3.6-5.0); TOTAL PROTEIN 7.1 g/dL (6.3-8.2)
[2018-11-27 19:52] LABS: ACETAMINOPHEN < 10 ug/mL (10-30); ALCOHOL < 10 mg/dL (NONE DETECTED); SALICYLATE < 1.0 mg/dL (2.0-20.0)
--- NOTE | 2018-11-27 20:36 | ER Document Report ---
ED General - General Chief Complaint: Palpitations Stated Complaint: CHEST PAIN Time Seen by Provider: 11/27/18 18:46 Primary Care Provider: KOKI LOWRY MD [Primary Care Provider] - Follow up as needed Notes: 28-year-old male with a history of bipolar disorder and anxiety presents the emergency department stating that he needs help figuring out how to get his life together. Patient states that he is trying to do everything right but does not know how to balance all of the advice that he is getting. When I discussed these concerns with him further the patient states that he knows he should stop using nicotine but does not know how. Patient also states that he has a lot of anxiety and the nicotine helps make his anxiety go away so he does not know what he should use instead. Patient additionally states that he knows that he should be eating better but does not know what he should be eating. Patient gives me a sample day diet of 3 hotdogs and a [address] Gutierrez which she then states makes him feel unwell. Patient states that he gets advice for many people all day long as to what would be good for him but he does not have to balance all of this advice so he came to see a doctor. States he does have [facility] full physical examination and blood w ork. Also states that he is currently under treatment for bipolar disorder and other behavioral health disorders, is supposed to get his medications refilled on Tuesday and another Invega shot on Tuesday. Plans to keep this appointment. Patient is additionally concerned about skin changes on his feet. Admits that he is homeless and frequently sleeps wearing wet socks and shoes and now he has peeling skin on his feet. Denies any pain. Denies any injury to his feet or difficulty walking. States he is not allowed to go back to the homeless prison for the next year. Denies suicidal homicidal ideation, denies auditory or visual hallucinations. TRAVEL OUTSIDE OF THE [place] IN LAST 30 DAYS: No - Related Data Allergies/Adverse Reactions: trazodone Allergy (Mild, Verified 11/27/18 18:30) haloperidol [From Haldol] Allergy (Verified 11/27/18 18:30) acetaminophen [From Tylenol] Adverse Reaction (Mild, Verified 11/27/18 18:30) Past Medical History - General Information source: Patient - Social History Smoking Status: Current Every Day Smoker Lives with: Homeless Family History: Reviewed & Not Pertinent - Past Medical History Cardiac Medical History: Reports: Hx Hypercholesterolemia Endocrine Medical History: Denies: Hx Diabetes Mellitus Type 1, Hx Diabetes Mellitus Type 2 Renal/ Medical History: Denies: Hx Peritoneal Dialysis GI Medical History: Reports: Hx Gastroesophageal Reflux Disease Psychiatric Medical History: Reports: Hx Attention Deficit Hyperactivity Disorder, Hx Bipolar Disorder Past Surgical History: Reports: Hx Oral Surgery - Immunizations Hx Diphtheria, Pertussis, Tetanus Vaccination: Yes Review of Systems - Review of Systems EENT: No symptoms reported Cardiovascular: No symptoms reported Respiratory: No symptoms reported Gastrointestinal: No symptoms reported Genitourinary: No symptoms reported Musculoskeletal: See HPI Skin: See HPI Neurological/Psychological: See HPI, Anxiety. denies: Hallucinations, Sensory change, Homicidal ideation, Speech impairment -: Yes All other systems reviewed and negative Physical Exam - Vital signs Vitals: Temp Pulse Resp BP Pulse Ox 98.3 F 100 16 132/70 H 98 11/27/18 18:42 11/27/18 18:42 11/27/18 18:42 11/27/18 18:42 11/27/18 18:42 Interpretation: Normal - Notes Notes: GENERAL: Alert, interacts well. No acute distress. Malodorous HEAD: Normocephalic, atraumatic EYES: Pupils equal, round and reactive to light, extraocular movements intact. ENT: Oral mucosa moist, tongue midline. NECK: Full range of motion, supple, trachea midline. LUNGS: Clear to auscultation bilaterally, no wheezes, rales or rhonchi, no respiratory distress. HEART: Regular rate and rhythm, no murmurs, gallops, rubs. ABDOMEN: Soft, nontender, nondistended, bowel sounds present in all 4 quadrants. EXTREMITIES: Moves all 4 extremities spontaneously, no edema, radial and dorsalis pedis pulses 2/4 bilaterally. No cyanosis. NEUROLOGICAL: Alert and oriented x3, normal speech. PSYCH: Normal mood, normal affect. Easily distracted but also easily redirectable. SKIN: Feet are malodorous, skin is macerated and white, there is a plantar wart on his right heel, no signs of secondary bacterial infection. There is some peeling of the skin to his feet but no blistering. There is an abrasion to the lateral aspect of the left elbow approximately 1 cm in diameter with a small amount of honey crusting. No surrounding erythema. Course - Re-evaluation Re-evalutation: 11/27/18 20:36 CBC unremarkable, CMP unremarkable, troponin negative, urinalysis shows good hydration, urine drug screen negative, salicylates, acetaminophen and alcohol all undetectable. EKG is nonischemic. Chest x-ray does not show any acute process. 11/27/18 20:58 Extensive discussion with the patient reveals that the patient does wear the same pair of socks and shoes all day long and all night despite the fact that they get wet. He is homeless. Discussed the importance of letting his feet air out whenever possible and keeping issues as dry as possible. 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 Patient will try to keep his feet as dry as possible. Patient was informed that he does have a plantar wart but discussed that treatment for that will be more successful if we wait until his feet are no longer macerated. There is no sign of bacterial infection at this time. He did have an extensive discussion with the patient regarding yes it is important to try and take care of his health but it is important to use manage able steps. He is going to focus on decreasing nicotine use down to half pack of cigarettes a day and no more, patient will have all of his behavioral health medications filled on Tuesday, after he has been taking them for at least 2 weeks he will then discuss with [facility] what other steps he needs to take as far as management of his diet and how he can quit smoking. Currently I have advised the patient to fill half of his plate with fruits and vegetables, no more than a quarter his plate with meat and no more than quarter of his plate with starches. He is agreeable to these initial steps at general health improvement. I have not identified any emergent condition at this time. He is not suicidal or homicidal, he does not appear to be having hallucinations. He will be discharged from the emergency department. - Vital Signs Vital signs: Temp Pulse Resp BP Pulse Ox 98.3 F 100 16 132/70 H 98 11/27/18 18:42 11/27/18 18:42 11/27/18 18:42 11/27/18 18:42 11/27/18 18:42 - Laboratory Result Diagrams: 11/27/18 19:00 11/27/18 19:00 Laboratory results interpreted by me: 11/27/18 11/27/18 19:00 19:00 RDW 14.3 H Salicylates < 1.0 L Acetaminophen < 10 L - EKG Interpretation by Me Additional EKG results interpreted by me: 11/27/18 21:00 EKG shows sinus rhythm at a rate of 68, normal axis, normal intervals, no ST segment elevations or depressions, no T wave inversions per my interpretation. Discharge - Discharge Clinical Impression: Maceration of skin, Plantar wart of right foot, Skin abrasion, Encounter for dietary counseling and surveillance Nicotine addiction Qualifiers: Nicotine product type: cigarettes Substance use status: uncomplicated Qualified Code(s): F17.210 - Nicotine dependence, cigarettes, uncomplicated Condition: Stable Disposition: HOME, SELF-CARE Additional Instructions: Keep your feet as dry as possible. Wear the flip-flops as often as possible. Only wear your socks and shoes when you are working otherwise leave your feet exposed to the air so they can dry out. You do have a wart on the bottom of your foot. This will be most easily taking care of after we heal the broken down skin on your feet by leaving exposed to the air. We discussed the need to decrease her nicotine use, but for now do not smoke more than half pack of cigarettes a day. After you [facility] your primary care physician discussed with them a plan to help you quit smoking. You may also see them for further dietary counseling. Today the initial advice was to divide your plate into portions. Half the plate should contain fruits and vegetables, no more than a quarter of the plate to contain meat no more than a quarter of the plate should contain starches such as pasta, bread, rice or potatoes. Please do not skip your appointment to get your Invega and other behavioral he alth medications filled on Tuesday. Referrals: KOKI LOWRY MD [Primary Care Provider] - Follow up as needed
--- NOTE | 2018-11-27 20:43 | RADIOLOGY REPORT (SQ) ---
XR CHEST 2 VIEWS EXAM DATE: 11/27/2018 6:58 PM CDT HISTORY: Chest pain. COMPARISON: 08/17/2018 FINDINGS: The heart size is within normal limits. No consolidation, pleural effusion, or pneumothorax is seen. The bony thorax is intact. IMPRESSION: No evidence of acute cardiopulmonary disease.
[2018-11-27 21:20] VITALS: BP 128/67
--- NOTE | 2018-11-28 23:12 | EKG REPORT ---
SEVERITY:- NORMAL ECG - SINUS RHYTHM : Confirmed by: Ronald Mai 28-Nov-2018 23:11:46
== END 2018-11-27 21:10 | disposition home or self-care (01) ==
LOC: ER 18:29
DX: T69.029A Immersion foot, unspecified foot, initial encounter (principal); S50.312A Abrasion of left elbow, initial encounter; B07.0 Plantar wart; R00.2 Palpitations; R07.9 Chest pain, unspecified; F31.9 Bipolar disorder, unspecified; F41.9 Anxiety disorder, unspecified; F17.210 Nicotine dependence, cigarettes, uncomplicated; X58.XXXA Exposure to other specified factors, initial encounter; Z71.3 Dietary counseling and surveillance
CPT/HCPCS: 36415; 71046; 80053; 80307; 81001; 84484; 85025; 93005; 93010